=== PATIENT | female | born 1990 | race Caucasian/White ===

== ENCOUNTER 2023-03-03 20:12 | Emergency (ER) | payer OTHER, SELFPAY ==
[2023-03-03 20:19] VITALS: BP 124/69; PULSE 76; RESP 18; TEMP 36.6; O2SAT 99; BMI 20.2
[2023-03-03 20:41] LABS: Basophils # 0.1 10^3/uL (0.0-0.1); Basophils % 0.7 %; Eosinophils # 0.3 10^3/uL (0.0-0.8); Eosinophils % 2.7 %; Hematocrit 39.5 % (36-47); Lymphocytes # 2.6 10^3/uL (0.8-4.8); Lymphocytes % 27.8 %; Mean Corpuscular HGB Conc 31.9 g/dL (30-55); Mean Corpuscular Hemoglobin 29.8 pg (27-33); Mean Corpuscular Volume 93.4 fl (85-98); Mean Platelet Volume 12.8 fL (7.4-10.4); Monocytes # 0.6 10^3/uL (0.2-0.9); Monocytes % 6.8 %; Neutrophils # 5.68 10^3/uL (1.8-7.7); Neutrophils % 61.8 %; Nucleated Red Blood Cells % 0 %; Platelet Count 194 10^3/cmm (157-399); Red Blood Count 4.23 10^6/uL (3.85-5.65); Red Cell Distribution Width 12.8 % (12.1-15.1); White Blood Count 9.18 10^3/uL (3.29-11.43)
--- NOTE | 2023-03-03 20:44 | USR_ITS ---
PROCEDURE INFORMATION: Exam: US Abdomen, Limited; Right Upper Quadrant Exam date and time: 03/03/2023 9:00 PM Age: 33 years old Clinical indication: Abdominal pain; Other: Ruq pain; Patient HX: Diagnosed with gallstone in tx 4 months ago but missed surgical appointment due to a clerical error. Normal tbili = 0.2, normal ast = 14, normal alt = 11, normal alkphos = 70; Normal lipase = 26. TECHNIQUE: Imaging protocol: Real time ultrasound of the abdomen with image documentation. Limited exam focused on the right upper quadrant. COMPARISON: No relevant prior studies available. FINDINGS: Liver: Normal. No masses. Gallbladder: Shadowing stones in the gallbladder. Thickened gallbladder wall measuring 6.7 mm. No pericholecystic fluid. Positive Leong's sign. Biliary ducts: Normal. No stones. No dilation. Pancreas: Visualized pancreas is unremarkable. Right kidney: Normal. No mass. No hydronephrosis. US/US gall bladder [id number] IMPRESSION: 1. Cholelithiasis with gallbladder wall thickening. This is suspicious for acute cholecystitis.
--- NOTE | 2023-03-03 20:55 | ED_ITS ---
HPI - Abdominal Pain General: Chief Complaint: Abdominal Pain Stated Complaint: abdomen pain Time Seen by Provider: 03/03/23 20:17 Source: patient Mode of arrival: ambulatory Limitations: no limitations History of Present Illness: 33-year-old female states she has had right upper quadrant pain for quite some time she states she has had issues with her gallbladder she just moved here from [place] a week ago she states she was supposed to have her gallbladder out there but missed her appointment. She states she is out of her pain meds and would like to follow-up with a surgeon here she is having some right upper quadrant pain she rates a 2 out of 10 denies any fevers or vomiting Associated Symptoms: Denies chills, diarrhea, dysuria, fever(s), nausea and vomi ting Review of Systems Const: Denies: fever(s), chills, body aches or change in appetite ENMT: Denies: throat pain or dental pain Card: Denies: chest pain Resp: Denies: dyspnea GI: Reports: abdominal pain; Denies: nausea, vomiting or diarrhea : Denies: dysuria Musc: Denies: neck pain or back pain Skin/Breast: Denies: rash Neuro: Denies: headache(s) Physical Exam Const: COMMON NORMALS: no acute distress, patient oriented x3 and healthy appearing HENMT: COMMON NORMALS: normocephalic and atraumatic HEAD & SCALP: normocephalic and atraumatic Neck/C-Spine: COMMON NORMALS: full ROM and supple Chest: COMMONS NORMALS: normal inspection of the chest Resp: COMMON NORMALS: normal respiratory effort Cardio: COMMON NORMALS: regular rate, regular rhythm and No murmurs present (Cardio) RATE: regular rate RHYTHM: regular rhythm GI: COMMON NORMALS: Normal to inspection, nondistended, normoactive bowel sounds present, Soft to palpation, non-tender and no masses PALPATION: Yes Soft to palpation Extremity: COMMON NORMALS: normal to inspection and full ROM Neuro: COMMON NORMALS: patient oriented x3, moves all extremities and no focal motor deficits Psych: COMMON NORMALS: mental status grossly normal, Normal thought process present and cooperative THOUGHT PROCESS: Normal thought process present Skin: COMMON NORMALS: no rashes or lesions noted and no wounds GENERAL SKIN EXAM: no rashes or lesions noted Course Vital Signs: Vital signs: Vital Signs Temperature 97.8 F 03/03/23 20:19 Pulse Rate 76 03/03/23 20:19 Respiratory Rate 16 03/03/23 20:56 Blood Pressure 124/69 03/03/23 20:19 Pulse Oximetry 98 03/03/23 20:56 Oxygen Delivery Me thod Room Air 03/03/23 20:56 MDM - Abdominal Pain Medical Decision Making Patient presents with right upper quadrant pain its been going for quite some time ultrasound showed cholecystitis her white count here is normal she is afebrile her pain is controlled here I spoke to surgeon on-call Dr. Camara and do not feel patient needs immediate surgery at this time will start on Augmentin he is to follow-up in the clinic on inform should having fever vomiting worsening pain she is return. Medical Records I reviewed the patient's medical records. Lab Data I reviewed the patient's lab results. 03/03/23 20:35 03/03/23 20:35 Labs/Radiology: Radiology Impressions Gallbladder Ultrasound 03/03/23 20:44 IMPRESSION: 1. Cholelithiasis with gallbladder wall thickening. This is suspicious for acute cholecystitis. Laboratory Results WBC 9.18 10^3/uL (3.29-11.43) 03/03/23 20:35 RBC 4.23 10^6/uL (3.85-5.65) 03/03/23 20:35 Hgb 12.60 g/dL (11.27-16.99) 03/03/23 20:35 Hct 39.5 % (36-47) 03/03/23 20:35 MCV 93.4 fl (85-98) 03/03/23 20:35 MCH 29.8 pg (27-33) 03/03/23 20:35 MCHC 31.9 g/dL (30-55) 03/03/23 20:35 RDW 12.8 % (12.1-15.1) 03/03/23 20:35 Plt Count 194 10^3/cmm (157-399) 03/03/23 20:35 MPV 12.8 fL (7.4-10.4) H 03/03/23 20:35 Neut % (Auto) 61.8 % 03/03/23 20:35 Lymph % (Auto) 27.8 % 03/03/23 20:35 [place] % (Auto) 6.8 % 03/03/23 20:35 Eos % (Auto) 2.7 % 03/03/23 20:35 Baso % (Auto) 0.7 % 03/03/23 20:35 Neut # (Auto) 5.68 10^3/uL (1.8-7.7) 03/03/23 20:35 Lymph # (Auto) 2.6 10^3/uL (0.8-4.8) 03/03/23 20:35 [place] # (Auto) 0.6 10^3/uL (0.2-0.9) 03/03/23 20:35 Eos # (Auto) 0.3 10^3/uL (0.0-0.8) 03/03/23 20:35 Baso # (Auto) 0.1 10^3/uL (0.0-0.1) 03/03/23 20:35 Nucleated RBC % (auto) 0 % 03/03/23 20:35 Nucleated RBCs # 0.0 /100WBC 03/03/23 20:35 Sodium 142 mmol/L (136-145) 03/03/23 20:35 Potassium 3.7 mmol/L (3.5-5.1) 03/03/23 20:35 Chloride 108 mmol/L (98-107) H 03/03/23 20:35 Carbon Dioxide 25 mmol/L (22-29) 03/03/23 20:35 Anion Gap 12.7 (5-19) 03/03/23 20:35 BUN 13 mg/dL (6-20) 03/03/23 20:35 Creatinine 0.8 mg/dL (0.5-0.9) 03/03/23 20:35 GFR Calculation 81.6 mL/min (90-130) L 03/03/23 20:35 Glucose 88 mg/dL (65-115) 03/03/23 20:35 Calculated Osmolality 294 mOsm/kg (285-295) 03/03/23 20:35 Calcium 8.7 mg/dL (8.5-10.5) 03/03/23 20:35 Total Bilirubin 0.2 mg/dL (0.15-1.2) 03/03/23 20:35 AST 14 U/L (0-32) 03/03/23 20:35 ALT 11 U/L (0-33) 03/03/23 20:35 Alkaline Phosphatase 70 U/L (35-105) 03/03/23 20:35 Total Protein 6.8 g/dL (6.6-8.7) 03/03/23 20:35 Albumin 4.2 g/dL (3.5-5.2) 03/03/23 20:35 Globulin 2.6 g/dL (1.3-4.6) 03/03/23 20:35 Lipase 26 U/L (13-60) 03/03/23 20:35 HCG, Qual Negative (Negative) 03/03/23 20:35 Urine Color Yellow (Yellow) 03/03/23 20:52 Urine Appearance Clear (CLEAR) 03/03/23 20:52 Urine pH 6 (5-7) 03/03/23 20:52 Ur Specific [place] 1.020 (1.005-1.030) 03/03/23 20:52 Urine Protein Neg (Negative) 03/03/23 20:52 Urine Glucose (UA) Norm (Normal) 03/03/23 20:52 Urine Ketones 1+ (Negative) H 03/03/23 20:52 Urine Blood 2+ (Negative) H 03/03/23 20:52 Urine Nitrate Negative (Negative) 03/03/23 20:52 Urine Bilirubin Neg (Negative) 03/03/23 20:52 Urine Urobilinogen Norm mg/dL (Negative) 03/03/23 20:52 Ur Leukocyte Esterase Negative (Negative) 03/03/23 20:52 Urine RBC 5-10 /hpf (0-2) H 03/03/23 20:52 Urine WBC None /hpf (0-5) 03/03/23 20:52 Ur Squamous Epith Cells 0-4 /hpf (0-5) H 03/03/23 20:52 Amorphous Sediment Not Reportable 03/03/23 20:52 Urine Bacteria Trace /hpf (NONE) 03/03/23 20:52 Urine Mucus Trace /hpf 03/03/23 20:52 All radiology interpretation(s) finalized by discharge Discharge Plan Discharge Patient Disposition: Home Clinical Impression: Cholecystitis Condition: Stable Prescriptions: New Augmentin 500-125 mg tablet 1 tab PO BID Qty: 14 0RF ketorolac 10 mg tablet 10 mg PO Q8H PRN (Reason: pain) Qty: 20 0RF ondansetron 4 mg tablet,disintegrating 4 mg PO Q6H PRN (Reason: nausea and vomiting) Qty: 14 0RF Discharge Orders: Discharge ED (Routine); Ordered 03/03/23 Ordered By: Gavin Duvall Referrals: Steven Fox MD [Physician] - 1-3 days Discharge Diet: Advance as tolerated Discharge Activity: Resume usual activity Patient Instructions: Cholecystitis (ED) Coding Level of Care Code ED Wrapper Stemmer Hand for Nahid Groves
[2023-03-03 20:56] VITALS: RESP 16; O2SAT 98
[2023-03-03 20:59] LABS: HCG, Serum Qual Negative (Negative)
[2023-03-03 21:08] LABS: Alanine Aminotransferase 11 U/L (0-33); Albumin Level 4.2 g/dL (3.5-5.2); Alkaline Phosphatase 70 U/L (35-105); Anion Gap 12.7 (5-19); Aspartate Amino Transferase 14 U/L (0-32); Blood Urea Nitrogen 13 mg/dL (6-20); Calcium 8.7 mg/dL (8.5-10.5); Carbon Dioxide 25 mmol/L (22-29); Chloride 108 mmol/L (98-107); Globulin 2.6 g/dL (1.3-4.6); Glomerular Filtration Rate 81.6 mL/min (90-130); Glucose 88 mg/dL (65-115); Lipase 26 U/L (13-60); Osmolality Calculated 294 mOsm/kg (285-295); Potassium 3.7 mmol/L (3.5-5.1); Sodium 142 mmol/L (136-145); Total Bilirubin 0.2 mg/dL (0.15-1.2); Total Protein 6.8 g/dL (6.6-8.7)
[2023-03-03 21:16] LABS: Add Urine Microscopic? YES; Bilirubin Urine Neg (Negative); Blood Urine 2+ (Negative); Glucose Urine UA Norm (Normal); Ketones Urine 1+ (Negative); Leukocyte Esterase Urine Negative (Negative); Nitrate Urine Negative (Negative); Protein Urine Neg (Negative); Urine Appearance Clear (CLEAR); Urine Color Yellow (Yellow); Urobilinogen Urine Norm (Negative); pH Urine 6 (5-7)
[2023-03-03 21:18] LABS: Bacteria Urine TRACE /hpf; Mucus Urine TRACE /hpf; Squamous Epithelial Cell Urine 0-4 /hpf (0-5)
[2023-03-03 21:20] LABS: Add Urine Culture? No
[2023-03-03] MEDS: ketorolac 30 mg/mL INJ 15 MG IVP (21:21)
[2023-03-03 22:02] VITALS: BP 117/76; RESP 16; O2SAT 98
--- NOTE | 2023-03-04 10:45 | PC.NURSE ---
spoke with EDDIE Ragsdale, new order for Cipro 500 mg 1 tab po BID x 10 days, Flagyl 500mg 1 tab PO q8h x 10 days, called both meds into [facility]- updated preferred pharmacy and allergies
--- NOTE | 2023-03-04 18:10 | DCPLANNER ---
Sent message to gen surg for follow up on cholelithiasis
== END 2023-03-03 22:03 | disposition home or self-care (01) ==
PROVIDERS: Emergency Provider Emergency Medicine
DX: K81.9 Cholecystitis, unspecified (principal)
CPT/HCPCS: 36415; 76705; 80053; 81001; 83690; 84703; 85025; 96374; 99284; J1885

== ENCOUNTER 2023-03-07 13:35 | Emergency (ER) | payer SELFPAY ==
[2023-03-07 13:40] VITALS: BP 110/71; PULSE 92; RESP 18; TEMP 36.6; O2SAT 100; BMI 20.2
[2023-03-07 14:28] LABS: Basophils % 0.3 %; Eosinophils # 0.1 10^3/uL (0.0-0.8); Eosinophils % 1.2 %; Hematocrit 43.3 % (36-47); Lymphocytes # 0.8 10^3/uL (0.8-4.8); Lymphocytes % 7.3 %; Mean Corpuscular HGB Conc 31.9 g/dL (30-55); Mean Corpuscular Hemoglobin 29.6 pg (27-33); Mean Corpuscular Volume 92.7 fl (85-98); Mean Platelet Volume 12.8 fL (7.4-10.4); Monocytes # 0.3 10^3/uL (0.2-0.9); Monocytes % 2.8 %; Neutrophils # 9.26 10^3/uL (1.8-7.7); Neutrophils % 88.3 %; Nucleated Red Blood Cells % 0 %; Platelet Count 221 10^3/cmm (157-399); Red Blood Count 4.67 10^6/uL (3.85-5.65); Red Cell Distribution Width 12.9 % (12.1-15.1); White Blood Count 10.49 10^3/uL (3.29-11.43)
[2023-03-07] MEDS: ondansetron 2 mg/ML SDV 2 mL 4 MG IVP (14:44)
[2023-03-07] MEDS: sodium chloride 0.9% 1,000 ML 999 ML IV (14:44)
[2023-03-07 14:46] LABS: Alanine Aminotransferase 13 U/L (0-33); Albumin Level 4.3 g/dL (3.5-5.2); Alkaline Phosphatase 74 U/L (35-105); Anion Gap 15.5 (5-19); Aspartate Amino Transferase 20 U/L (0-32); Blood Urea Nitrogen 13 mg/dL (6-20); Calcium 9.1 mg/dL (8.5-10.5); Carbon Dioxide 24 mmol/L (22-29); Chloride 105 mmol/L (98-107); Globulin 2.8 g/dL (1.3-4.6); Glomerular Filtration Rate 81.6 mL/min (90-130); Glucose 98 mg/dL (65-115); Lipase 18 U/L (13-60); Osmolality Calculated 290 mOsm/kg (285-295); Potassium 4.5 mmol/L (3.5-5.1); Sodium 140 mmol/L (136-145); Total Bilirubin 0.6 mg/dL (0.15-1.2); Total Protein 7.1 g/dL (6.6-8.7)
--- NOTE | 2023-03-07 16:38 | ED_ITS ---
HPI - Nausea/Vomiting/Diarrhea General: Chief complaint: Nausea/Vomiting/Diarrhea Stated complaint: fever, N/V Time Seen by Provider: 03/07/23 13:51 History of Present Illness: This patient is a 33-year-old white female who presents to the emergency department with nausea, vomiting and diarrhea. Symptoms started at 3 AM this morning. She has not had a fever. No dysuria. Some mild crampy abdominal pain. Past medical history is significant for cholecystitis. Review of Systems General: Reports: 10 or more systems reviewed and unremarkable except in HPI and below Physical Exam Const: COMMON NORMALS: no acute distress, patient oriented x3 and no limitations GENERAL APPEARANCE: cooperative and comfortable HENMT: COMMON NORMALS: normocephalic, atraumatic, Normal nasal mucous membranes and turbinates present, moist oral mucous membranes and oropharynx normal HEAD & SCALP: normal to inspection, normocephalic and atraumatic FACE & SINUS: normal facial exam NOSE: Normal nasal mucous membranes and turbinates present Eye: COMMON NORMALS: Equal, round and reactive pupils present, EOMs intact bilaterally and conjunctivae normal GENERAL EYE: appearance normal, both eyes and all related structures CONJUNCTIVA: Yes conjunctivae normal PUPIL: Yes Equal, round and reactive pupils present Neck/C-Spine: COMMON NORMALS: supple and no JVD Chest: COMMONS NORMALS: normal inspection of the chest Resp: COMMON NORMALS: normal respiratory effort and clear to auscultation bilaterally AUSCULTATION: clear to auscultation bilaterally Cardio: COMMON NORMALS: no JVD, regular rate, regular rhythm, No gallops present (Cardio), No murmurs present (Cardio) and No rub (Cardio) RATE: regular rate RHYTHM: regular rhythm GI: COMMON NORMALS: Normal to inspection, nondistended, normoactive bowel sounds present, Soft to palpation and non-tender AUSCULTATION: Yes normoactive bowel sounds PALPATION: Yes Soft to palpation : COMMON NORMALS: Yes no CVA tenderness BLADDER/KIDNEY EXAM: Yes no CVA tenderness Back/Pelvis: COMMON NORMALS: no CVA tenderness and thoracic and lumbar spine normal to inspection Extremity: COMMON NORMALS: normal to inspection Neuro: COMMON NORMALS: patient oriented x3 and CN's II-XII intact bilaterally Psych: COMMON NORMALS: mental status grossly normal, Normal thought process present and cooperative THOUGHT PROCESS: Normal thought process present Skin: COMMON NORMALS: no rashes or lesions noted, turgor normal and no jaundice GENERAL SKIN EXAM: no rashes or lesions noted and turgor normal Course Vital Signs: Vital signs: Vital Signs Temperature 98 F 03/07/23 13:40 Pulse Rate 92 03/07/23 13:40 Respiratory Rate 18 03/07/23 13:40 Blood Pressure 110/71 03/07/23 13:40 Pulse Oximetry 100 03/07/23 13:40 Oxygen Delivery Me thod Room Air 03/07/23 13:40 MDM - Nausea/Vomiting/Diarrhea Medical Decision Making CBC, CMP and lipase were normal. Patient was given a 1 L bolus of normal saline and 4 mg of Zofran IV. She is feeling better. She appears to have gastroenteritis. Recommended she push clear liquids only until symptoms subside then advance diet slowly. She states she does have plenty of Zofran at home. Follow-up with primary care physician next week if no improvement. She was discharged in stable condition. Lab Data 03/07/23 14:12 03/07/23 14:12 Laboratory Results WBC 10.49 10^3/uL (3.29-11.43) 03/07/23 14:12 RBC 4.67 10^6/uL (3.85-5.65) 03/07/23 14:12 Hgb 13.80 g/dL (11.27-16.99) 03/07/23 14:12 Hct 43.3 % (36-47) 03/07/23 14:12 MCV 92.7 fl (85-98) 03/07/23 14:12 MCH 29.6 pg (27-33) 03/07/23 14:12 MCHC 31.9 g/dL (30-55) 03/07/23 14:12 RDW 12.9 % (12.1-15.1) 03/07/23 14:12 Plt Count 221 10^3/cmm (157-399) 03/07/23 14:12 MPV 12.8 fL (7.4-10.4) H 03/07/23 14:12 Neut % (Auto) 88.3 % 03/07/23 14:12 Lymph % (Auto) 7.3 % 03/07/23 14:12 [place] % (Auto) 2.8 % 03/07/23 14:12 Eos % (Auto) 1.2 % 03/07/23 14:12 Baso % (Auto) 0.3 % 03/07/23 14:12 Neut # (Auto) 9.26 10^3/uL (1.8-7.7) H 03/07/23 14:12 Lymph # (Auto) 0.8 10^3/uL (0.8-4.8) 03/07/23 14:12 [place] # (Auto) 0.3 10^3/uL (0.2-0.9) 03/07/23 14:12 Eos # (Auto) 0.1 10^3/uL (0.0-0.8) 03/07/23 14:12 Baso # (Auto) 0.0 10^3/uL (0.0-0.1) 03/07/23 14:12 Nucleated RBC % (auto) 0 % 03/07/23 14:12 Nucleated RBCs # 0.0 /100WBC 03/07/23 14:12 Sodium 140 mmol/L (136-145) 03/07/23 14:12 Potassium 4.5 mmol/L (3.5-5.1) 03/07/23 14:12 Chloride 105 mmol/L (98-107) 03/07/23 14:12 Carbon Dioxide 24 mmol/L (22-29) 03/07/23 14:12 Anion Gap 15.5 (5-19) 03/07/23 14:12 BUN 13 mg/dL (6-20) 03/07/23 14:12 Creatinine 0.8 mg/dL (0.5-0.9) 03/07/23 14:12 GFR Calculation 81.6 mL/min (90-130) L 03/07/23 14:12 Glucose 98 mg/dL (65-115) 03/07/23 14:12 Calculated Osmolality 290 mOsm/kg (285-295) 03/07/23 14:12 Calcium 9.1 mg/dL (8.5-10.5) 03/07/23 14:12 Total Bilirubin 0.6 mg/dL (0.15-1.2) 03/07/23 14:12 AST 20 U/L (0-32) 03/07/23 14:12 ALT 13 U/L (0-33) 03/07/23 14:12 Alkaline Phosphatase 74 U/L (35-105) 03/07/23 14:12 Total Protein 7.1 g/dL (6.6-8.7) 03/07/23 14:12 Albumin 4.3 g/dL (3.5-5.2) 03/07/23 14:12 Globulin 2.8 g/dL (1.3-4.6) 03/07/23 14:12 Lipase 18 U/L (13-60) 03/07/23 14:12 No radiology studies performed this visit Discharge Plan Discharge Patient Disposition: Home Clinical Impression: Gastroenteritis Condition: Stable Prescriptions: No Action ketorolac 10 mg tablet 10 mg PO Q8H PRN (Reason: pain) Qty: 20 0RF ondansetron 4 mg tablet,disintegrating 4 mg PO Q6H PRN (Reason: nausea and vomiting) Qty: 14 0RF Flagyl 500 mg Tablet 500 mg PO Q8H Rx Instructions: for 10 days (rx filled 03/04/23) Cipro 500 mg Tablet 500 mg PO BID Rx Instructions: for 10 days (rx filled 03/04/23) Discharge Orders: Discharge ED (Routine); Ordered 03/07/23 Ordered By: Kervin Olivo Patient Instructions: Gastroenteritis (DC) Coding Level of Care Code ED Engineering Specialist Technician for Nahid Groves
== END 2023-03-07 15:29 | disposition home or self-care (01) ==
PROVIDERS: Emergency Provider Emergency Medicine
DX: K52.9 Noninfective gastroenteritis and colitis, unspecified (principal)
CPT/HCPCS: 36415; 80053; 83690; 85025; 96374; 99284; J2405; J7030

== ENCOUNTER 2023-03-20 16:28 | Emergency (ER) | payer OTHER, SELFPAY ==
[2023-03-20 16:31] VITALS: BP 144/82; PULSE 98; RESP 18; TEMP 36.5; O2SAT 100
[2023-03-20 17:24] LABS: Basophils # 0.1 10^3/uL (0.0-0.1); Basophils % 0.5 %; Eosinophils # 0.1 10^3/uL (0.0-0.8); Eosinophils % 0.5 %; Hematocrit 43.9 % (36-47); Lymphocytes # 2.3 10^3/uL (0.8-4.8); Lymphocytes % 17.8 %; Mean Corpuscular HGB Conc 32.1 g/dL (30-55); Mean Corpuscular Hemoglobin 29.4 pg (27-33); Mean Corpuscular Volume 91.5 fl (85-98); Mean Platelet Volume 11.7 fL (7.4-10.4); Monocytes # 0.6 10^3/uL (0.2-0.9); Monocytes % 4.4 %; Neutrophils # 9.83 10^3/uL (1.8-7.7); Neutrophils % 76.5 %; Nucleated Red Blood Cells % 0 %; Platelet Count 355 10^3/cmm (157-399); Red Cell Distribution Width 12.5 % (12.1-15.1); White Blood Count 12.84 10^3/uL (3.29-11.43)
[2023-03-20] MEDS: sodium chloride 0.9% 1,000 ML 999 ML IV (17:28)
[2023-03-20] MEDS: ketorolac 30 mg/mL INJ IVP (17:29)
[2023-03-20] MEDS: ondansetron 2 mg/ML SDV 2 mL 4 MG IVP (17:29)
[2023-03-20 17:40] VITALS: BP 127/88; PULSE 78; RESP 16; O2SAT 93
[2023-03-20 17:42] LABS: Add Urine Microscopic? NO; Charge for UA Resulting for Rev
[2023-03-20 17:51] LABS: Alanine Aminotransferase 14 U/L (0-33); Albumin Level 4.5 g/dL (3.5-5.2); Alkaline Phosphatase 70 U/L (35-105); Anion Gap 16.5 (5-19); Aspartate Amino Transferase 15 U/L (0-32); Blood Urea Nitrogen 9 mg/dL (6-20); Calcium 9.6 mg/dL (8.5-10.5); Carbon Dioxide 22 mmol/L (22-29); Chloride 104 mmol/L (98-107); Globulin 2.9 g/dL (1.3-4.6); Glomerular Filtration Rate 81.6 mL/min (90-130); Glucose 84 mg/dL (65-115); Lipase 17 U/L (13-60); Osmolality Calculated 286 mOsm/kg (285-295); Potassium 3.5 mmol/L (3.5-5.1); Sodium 139 mmol/L (136-145); Total Bilirubin 0.4 mg/dL (0.15-1.2); Total Protein 7.4 g/dL (6.6-8.7)
--- NOTE | 2023-03-20 17:57 | ED_ITS ---
HPI - Abdominal Pain 2 General: Chief Complaint: Abdominal Pain Stated Complaint: abd pain,reports gallbladder attack Time Seen by Provider: 03/20/23 17:12 History of Present Illness: Patient presents to the ER with complaints of having a gallbladder attack. Patient states she drank an energy drink today that she does not normally drink and it triggered her anxiety causing her heart to race and causing her to have a right upper quadrant pain type gallbladder attack. Patient says she calm her anxiety down by breathing in and out a paper bag. Patient does have known gallstones and she is set for surgery by Dr. Blum in April 23, 2023. Patient is not having nausea with vomiting. Patient said she tried to eat a [employer] sandwich today but was unable to due to nausea vomiting. Patient is already feeling better. Review of Systems 2 General: Reports: 10 or more systems reviewed and unremarkable except in HPI and below PFSH ED 2 PFSH: Social History Smoking and tobacco/nicotine status: current some day tobacco/nicotine user cigarettes Physical Exam 2 Const: COMMON NORMALS: no acute distress, average body habitus, patient oriented x3, no limitations, healthy appearing, alert and well nourished Neck/C-Spine: COMMON NORMALS: no JVD Chest: COMMONS NORMALS: normal inspection of the chest and normal palpation of entire chest wall Resp: COMMON NORMALS: normal respiratory effort, No retractions, No use of accessory muscles and clear to auscultation bilaterally AUSCULTATION: clear to auscultation bilaterally Cardio: COMMON NORMALS: no JVD, regular rate, regular rhythm, S1 normal heart sound present, S2 normal heart sound present, No gallops present (Cardio), No clicks present (Cardio), No murmurs present (Cardio) and No rub (Cardio) R ATE: regular rate RHYTHM: regular rhythm HEART SOUNDS: S1 normal heart sound present and S2 normal heart sound present GI: COMMON NORMALS: Normal to inspection, nondistended, normoactive bowel sounds present, Soft to palpation, No hepatosplenomegaly present and no masses; negative for non-tender (Tender to palpate right upper quadrant) PALPATION: Y es Soft to palpation and Yes No hepatosplenomegaly present Neuro: COMMON NORMALS: patient oriented x3 SENSORIUM/ORIENTATION: Yes alert Course 2 Vital Signs: Vital signs: Vital Signs Temperature 97.7 F 03/20/23 16:31 Pulse Rate 78 03/20/23 17:40 Respiratory Rate 16 03/20/23 17:40 Blood Pressure 127/88 03/20/23 17:40 Pulse Oximetry 93 03/20/23 17:40 Oxygen Delivery Me thod Room Air 03/20/23 16:31 MDM - Abdominal Pain Medical Decision Making Presents to the ER with right upper quadrant pain/biliary colic probably secondary to drinking energy drink and having anxiety attack. Lab work was obtained which was essentially benign. Patient was given 1 L sodium chloride bolus, 30 mg of Toradol, Zofran 4 mg, and patient felt much better. Patient be discharged home to keep her appointment with her surgeon as previously planned. Differential Diagnosis Likely abdominal pain; Unlikely acute appendicitis, calculus of kidney, constipation, diverticulitis, endometriosis, gastroenteritis, pancreatitis or small bowel obstruction Medical Records I reviewed the patient's medical records. Lab Data I reviewed the patient's lab results. 03/20/23 17:04 03/20/23 17:04 Labs/Radiology: Laboratory Results WBC 12.84 10^3/uL (3.29-11.43) H 03/20/23 17:04 RBC 4.80 10^6/uL (3.85-5.65) 03/20/23 17:04 Hgb 14.10 g/dL (11.27-16.99) 03/20/23 17:04 Hct 43.9 % (36-47) 03/20/23 17:04 MCV 91.5 fl (85-98) 03/20/23 17:04 MCH 29.4 pg (27-33) 03/20/23 17:04 MCHC 32.1 g/dL (30-55) 03/20/23 17:04 RDW 12.5 % (12.1-15.1) 03/20/23 17:04 Plt Count 355 10^3/cmm (157-399) 03/20/23 17:04 MPV 11.7 fL (7.4-10.4) H 03/20/23 17:04 Neut % (Auto) 76.5 % 03/20/23 17:04 Lymph % (Auto) 17.8 % 03/20/23 17:04 [place] % (Auto) 4.4 % 03/20/23 17:04 Eos % (Auto) 0.5 % 03/20/23 17:04 Baso % (Auto) 0.5 % 03/20/23 17:04 Neut # (Auto) 9.83 10^3/uL (1.8-7.7) H 03/20/23 17:04 Lymph # (Auto) 2.3 10^3/uL (0.8-4.8) 03/20/23 17:04 [place] # (Auto) 0.6 10^3/uL (0.2-0.9) 03/20/23 17:04 Eos # (Auto) 0.1 10^3/uL (0.0-0.8) 03/20/23 17:04 Baso # (Auto) 0.1 10^3/uL (0.0-0.1) 03/20/23 17:04 Nucleated RBC % (auto) 0 % 03/20/23 17:04 Nucleated RBCs # 0.0 /100WBC 03/20/23 17:04 Sodium 139 mmol/L (136-145) 03/20/23 17:04 Potassium 3.5 mmol/L (3.5-5.1) 03/20/23 17:04 Chloride 104 mmol/L (98-107) 03/20/23 17:04 Carbon Dioxide 22 mmol/L (22-29) 03/20/23 17:04 Anion Gap 16.5 (5-19) 03/20/23 17:04 BUN 9 mg/dL (6-20) 03/20/23 17:04 Creatinine 0.8 mg/dL (0.5-0.9) 03/20/23 17:04 GFR Calculation 81.6 mL/min (90-130) L 03/20/23 17:04 Glucose 84 mg/dL (65-115) 03/20/23 17:04 Calculated Osmolality 286 mOsm/kg (285-295) 03/20/23 17:04 Calcium 9.6 mg/dL (8.5-10.5) 03/20/23 17:04 Total Bilirubin 0.4 mg/dL (0.15-1.2) 03/20/23 17:04 AST 15 U/L (0-32) 03/20/23 17:04 ALT 14 U/L (0-33) 03/20/23 17:04 Alkaline Phosphatase 70 U/L (35-105) 03/20/23 17:04 Total Protein 7.4 g/dL (6.6-8.7) 03/20/23 17:04 Albumin 4.5 g/dL (3.5-5.2) 03/20/23 17:04 Globulin 2.9 g/dL (1.3-4.6) 03/20/23 17:04 Lipase 17 U/L (13-60) 03/20/23 17:04 HCG, Qual Negative (Negative) 03/20/23 17:04 Urine Color Light yellow (Yellow) 03/20/23 17:25 Urine Appearance Clear (CLEAR) 03/20/23 17:25 Urine pH 7 (5-7) 03/20/23 17:25 Ur Specific [place] 1.010 (1.005-1.030) 03/20/23 17:25 Urine Protein Neg (Negative) 03/20/23 17:25 Urine Glucose (UA) Norm (Normal) 03/20/23 17:25 Urine Ketones Negative (Negative) 03/20/23 17:25 Urine Blood Neg (Negative) 03/20/23 17:25 Urine Nitrate Negative (Negative) 03/20/23 17:25 Urine Bilirubin Neg (Negative) 03/20/23 17:25 Urine Urobilinogen Norm mg/dL (Negative) 03/20/23 17:25 Ur Leukocyte Esterase Negative (Negative) 03/20/23 17:25 No radiology studies performed this visit Discharge Plan Discharge Patient Disposition: Home Clinical Impression: Biliary colic Condition: Stable Prescriptions: No Action meloxicam 15 mg tablet 15 mg PO DAILY Qty: 15 0RF ketorolac 10 mg tablet 10 mg PO Q8H PRN (Reason: pain) Qty: 20 0RF ondansetron 4 mg tablet,disintegrating 4 mg PO Q6H PRN (Reason: nausea and vomiting) Qty: 14 0RF Flagyl 500 mg Tablet 500 mg PO Q8H Rx Instructions: for 10 days (rx filled 03/04/23) Cipro 500 mg Tablet 500 mg PO BID Rx Instructions: for 10 days (rx filled 03/04/23) Discharge Orders: Discharge ED (Routine); Ordered 03/20/23 Ordered By: Landon Davies Patient Instructions: Biliary Colic (ED) Activity Restrictions/Additional Instructions: Keep your appointment with your surgeon for your Removal of your gallbladder. If your pain comes back or worsens please feel free to return to the ER for further evaluation and treatment. Coding Level of Care Code ED Master Welder for Nahid Groves
[2023-03-20 18:06] LABS: HCG, Serum Qual Negative (Negative)
[2023-03-20 18:30] LABS: Bilirubin Urine Neg (Negative); Blood Urine Neg (Negative); Glucose Urine UA Norm (Normal); Ketones Urine Negative (Negative); Leukocyte Esterase Urine Negative (Negative); Nitrate Urine Negative (Negative); Protein Urine Neg (Negative); Urine Appearance Clear (CLEAR); Urine Color Light yellow (Yellow); Urobilinogen Urine Norm (Negative); pH Urine 7 (5-7)
[2023-03-20 19:28] VITALS: BP 127/88; PULSE 78; RESP 16; TEMP 36.5; O2SAT 93
== END 2023-03-20 19:30 | disposition home or self-care (01) ==
PROVIDERS: Nurse Practitioner Family; Emergency Provider Emergency Medicine
DX: K80.50 Calculus of bile duct without cholangitis or cholecystitis without obstruction (principal); F17.210 Nicotine dependence, cigarettes, uncomplicated
CPT/HCPCS: 36415; 80053; 81003; 83690; 84703; 85025; 96361; 96374; 96375; 99284; J1885; J2405; J7030

== ENCOUNTER 2023-03-23 18:54 | Emergency (ER) | payer OTHER, SELFPAY ==
[2023-03-23 18:58] VITALS: BP 115/79; PULSE 87; RESP 16; TEMP 36.7; O2SAT 99; BMI 17.4
[2023-03-23 20:31] LABS: Basophils # 0.1 10^3/uL (0.0-0.1); Basophils % 0.5 %; Eosinophils # 0.2 10^3/uL (0.0-0.8); Eosinophils % 1.8 %; Hematocrit 42.8 % (36-47); Lymphocytes # 2.8 10^3/uL (0.8-4.8); Lymphocytes % 25.7 %; Mean Corpuscular Hemoglobin 29.1 pg (27-33); Mean Corpuscular Volume 91.1 fl (85-98); Mean Platelet Volume 12.1 fL (7.4-10.4); Monocytes # 0.5 10^3/uL (0.2-0.9); Monocytes % 4.8 %; Neutrophils # 7.32 10^3/uL (1.8-7.7); Neutrophils % 66.9 %; Nucleated Red Blood Cells % 0 %; Platelet Count 296 10^3/cmm (157-399); Red Cell Distribution Width 12.5 % (12.1-15.1); White Blood Count 10.95 10^3/uL (3.29-11.43)
[2023-03-23 20:35] VITALS: BP 99/72; PULSE 78; RESP 15; O2SAT 98
--- NOTE | 2023-03-23 20:46 | W.ED.ABDPA2 ---
HPI - Abdominal Pain General: Chief Complaint: Abdominal Pain Stated Complaint: gallbladder abd pain Time Seen by Provider: 03/23/23 20:14 History of Present Illness: 33-year-old female with a history of biliary colic. She presents with right upper quadrant and right flank abdominal pain today. She has nausea. No vomiting. No diarrhea. No history of belly surgery. No fever. Associated Symptoms: Denies chills, diarrhea, fever(s), hematochezia and vomiting Related Data: Date of Last Menstrual Period: 03/12/23 Review of Systems Const: Denies: fever(s), chills or body aches Eyes: Denies: change in vision Card: Denies: chest pain or palpitations Resp: Denies: dyspnea, productive cough, non-productive cough or wheezing GI: Denies: vomiting, diarrhea or hematochezia : Denies: difficulty voiding Skin/Breast: Denies: rash Neuro: Denies: headache(s), weakness in extremities, dizziness or confusion PFSH ED PFSH: Social History Smoking and tobacco/nicotine status: current some day tobacco/nicotine user cigarettes Female Reproductive History: Date of last menstrual period: 03/12/23 Physical Exam Const: COMMON NORMALS: no acute distress GENERAL APPEARANCE: cooperative; not ill appearing and not frail appearing HENMT: COMMON NORMALS: normocephalic, atraumatic and Normal external nose present HEAD & SCALP: normocephalic and atraumatic FACE & SINUS: normal facial exam and face symmetric NOSE: Normal external nose present Eye: COMMON NORMALS: Equal, round and reactive pupils present and EOMs intact bilaterally PUPIL: Yes Equal, round and reactive pupils present Neck/C-Spine: GENERAL: Yes trachea midline Chest: CHEST: Yes Symmetrical chest wall rise Resp: COMMON NORMALS: normal respiratory effort, No retractions, No use of accessory muscles and clear to auscultation bilaterally AUSCULTATION: clear to auscultation bilaterally Cardio: COMMON NORMALS: regular rate and regular rhythm RATE: regular rate RHYTHM: regular rhythm GI: COMMON NORMALS: Normal to inspection, nondistended, normoactive bowel sounds present PALPATION: Yes Tenderness to palpation present (GI) Details: RUQ Extremity: COMMON NORMALS: no pedal edema Neuro: KAREN COMA SCALE: document GCS findings Karen coma scale eye opening: Spontaneous [place] coma scale verbal response: Orientated Karen coma scale motor response: Obey commands Karen coma scale total score: 15 SENSORY EXAM: Yes extremities (intact) Psych: COMMON NORMALS: speech normal SPEECH: Yes normal speech Skin: COMMON NORMALS: no rashes or lesions noted GENERAL SKIN EXAM: no rashes or lesions noted Course Vital Signs: Vital signs: Vital Signs Temperature 98.0 F 03/23/23 18:58 Pulse Rate 80 03/23/23 21:56 Respiratory Rate 15 03/23/23 20:35 Blood Pressure 125/51 03/23/23 21:56 Pulse Oximetry 98 03/23/23 21:56 Oxygen Delivery Me thod Room Air 03/23/23 18:58 MDM - Abdominal Pain Medical Decision Making 33-year-old female with a history of cholecystitis. She took antibiotics for this, and is scheduled at the beginning of April for cholecystectomy. She presents with right upper quadrant pain. No vomiting no fever. Vitals are stable. CBC is normal. BMP is normal. Liver enzymes are normal. C-reactive protein is 3. Urinalysis showed hematuria, and the patient is not on her period. Because of this, and because of history of gallbladder wall thickening on ultrasound previously, CT was ordered. It shows a nonobstructing kidney stone on the right. Cholelithiasis is present without gallbladder wall thickening. She will be allowed home for biliary colic. Outpatient follow-up. Lab Data 03/23/23 20:23 03/23/23 20:23 Labs/Radiology: Radiology Impressions Abdomen/Pelvis CT 03/23/23 21:43 IMPRESSION: 1. Small left and punctate right nonobstructing renal calculi. No hydroureteronephrosis. 2. Cholelithiasis. Laboratory Results WBC 10.95 10^3/uL (3.29-11.43) 03/23/23 20: RBC 4.70 10^6/uL (3.85-5.65) 03/23/23 20:23 Hgb 13.70 g/dL (11.27-16.99) 03/23/23 20:23 Hct 42.8 % (36-47) 03/23/23 20: MCV 91.1 fl (85-98) 03/23/23 20:23 MCH 29.1 pg (27-33) 03/23/23 20: MCHC 32.0 g/dL (30-55) 03/23/23 20: RDW 12.5 % (12.1-15.1) 03/23/23 20: Plt Count 296 10^3/cmm (157-399) 03/23/23 20: MPV 12.1 fL (7.4-10.4) H 03/23/23 20: Neut % (Auto) 66.9 % 03/23/23 20: Lymph % (Auto) 25.7 % 03/23/23 20: [place] % (Auto) 4.8 % 03/23/23 20: Eos % (Auto) 1.8 % 03/23/23: Baso % (Auto) 0.5 % 03/23/23 20: Neut # (Auto) 7.32 10^3/uL (1.8-7.7) 03/23/23 20: Lymph # (Auto) 2.8 10^3/uL (0.8-4.8) 03/23/23 20: [place] # (Auto) 0.5 10^3/uL (0.2-0.9) 03/23/23 20: Eos # (Auto) 0.2 10^3/uL (0.0-0.8) 03/23/23 20: Baso # (Auto) 0.1 10^3/uL (0.0-0.1) 03/23/23 20: Nucleated RBC % (auto) 0 % 03/23/23: Nucleated RBCs # 0.0 /100WBC 03/23/23 20: Sodium 140 mmol/L (136-145) 03/23/23 20:23 Potassium 4.1 mmol/L (3.5-5.1) 03/23/23 20: Chloride 105 mmol/L (98-107) 03/23/23 20: Carbon Dioxide 23 mmol/L (22-29) 03/23/23 20:23 Anion Gap 16.1 (5-19) 03/23/23 20:23 BUN 12 mg/dL (6-20) 03/23/23 20: Creatinine 0.6 mg/dL (0.5-0.9) 03/23/23 20: GFR Calculation 113.8 mL/min (90-130) 03/23/23 20: Glucose 80 mg/dL (65-115) 03/23/23 20: Calculated Osmolality 289 mOsm/kg (285-295) 03/23/23 20: Calcium 9.4 mg/dL (8.5-10.5) 03/23/23 20: Total Bilirubin 0.2 mg/dL (0.15-1.2) 03/23/23 20: AST 12 U/L (0-32) 03/23/23 20: ALT 10 U/L (0-33) 03/23/23 20: Alkaline Phosphatase 75 U/L (35-105) 03/23/23 20: C-Reactive Protein 3.0 mg/L (0.0-4.9) 03/23/23 20: Total Protein 7.4 g/dL (6.6-8.7) 03/23/23 20: Albumin 4.4 g/dL (3.5-5.2) 03/23/23 20: Globulin 3.0 g/dL (1.3-4.6) 03/23/23 20: Lipase 22 U/L (13-60) 03/23/23 20: HCG, Qual Negative (Negative) 03/23/23 20: Urine Color Yellow (Yellow) 03/23/23 20: Urine Appearance Hazy (CLEAR) A 03/23/23 20: Urine pH 7 (5-7) 03/23/23 20: Ur Specific [place] 1.010 (1.005-1.030) 03/23/23 20: Urine Protein Neg (Negative) 03/23/23 20: Urine Glucose (UA) Norm (Normal) 03/23/23 20: Urine Ketones Negative (Negative) 03/23/23 20: Urine Blood 2+ (Negative) H 03/23/23 20: Urine Nitrate Negative (Negative) 03/23/23 20: Urine Bilirubin Neg (Negative) 03/23/23 20: Urine Urobilinogen 1 mg/dL (Negative) H 03/23/23 20: Ur Leukocyte Esterase Negative (Negative) 12/03/23 20:22 Urine RBC 0-4 /hpf (0-2) H 03/23/23 20:22 Urine WBC None /hpf (0-5) 03/23/23 20:22 Ur Squamous Epith Cells 5-10 /hpf (0-5) H 03/23/23 20:22 Amorphous Sediment Not Reportable 03/23/23 20:22 Urine Bacteria None /hpf (NONE) 03/23/23 20:22 All radiology interpretation(s) finalized by discharge Discharge Plan Discharge Patient Disposition: Home Clinical Impression: Biliary colic Condition: Stable Prescriptions: New tramadol 50 mg tablet 50 mg PO Q6H PRN (Reason: pain) Qty: 14 0RF Continued ketorolac 10 mg tablet 10 mg PO Q8H PRN (Reason: pain) Qty: 20 0RF Discontinued meloxicam 15 mg tablet 15 mg PO DAILY Qty: 15 0RF No Action ondansetron 4 mg tablet,disintegrating 4 mg PO Q6H PRN (Reason: nausea and vomiting) Qty: 14 0RF Flagyl 500 mg Tablet 500 mg PO Q8H Rx Instructions: for 10 days (rx filled 03/04/23) Cipro 500 mg Tablet 500 mg PO BID Rx Instructions: for 10 days (rx filled 03/04/23) Discharge Orders: Discharge ED (Routine); Ordered 03/23/23 Ordered By: Irvin Solis Patient Instructions: Biliary Colic (ED), Abdominal Pain (ED), Opioid Safety, Pain Management Activity Restrictions/Additional Instructions: Return for fever greater than 100, vomiting liquids or medications, worsening pain despite treatment, yellowing of the eyes, other concerning symptoms. See your doctor next week. Coding Level of Care Code ED Apartment Community Assistant Manager for [facility]
[2023-03-23 20:47] LABS: HCG, Serum Qual Negative (Negative)
[2023-03-23 20:52] LABS: Alanine Aminotransferase 10 U/L (0-33); Albumin Level 4.4 g/dL (3.5-5.2); Alkaline Phosphatase 75 U/L (35-105); Anion Gap 16.1 (5-19); Aspartate Amino Transferase 12 U/L (0-32); Blood Urea Nitrogen 12 mg/dL (6-20); Calcium 9.4 mg/dL (8.5-10.5); Carbon Dioxide 23 mmol/L (22-29); Chloride 105 mmol/L (98-107); Glomerular Filtration Rate 113.8 mL/min (90-130); Glucose 80 mg/dL (65-115); Lipase 22 U/L (13-60); Osmolality Calculated 289 mOsm/kg (285-295); Potassium 4.1 mmol/L (3.5-5.1); Sodium 140 mmol/L (136-145); Total Bilirubin 0.2 mg/dL (0.15-1.2); Total Protein 7.4 g/dL (6.6-8.7)
[2023-03-23 21:04] LABS: Add Urine Microscopic? YES; Bilirubin Urine Neg (Negative); Blood Urine 2+ (Negative); Glucose Urine UA Norm (Normal); Ketones Urine Negative (Negative); Leukocyte Esterase Urine Negative (Negative); Nitrate Urine Negative (Negative); Protein Urine Neg (Negative); RBC Urine 0-4 /hpf (0-2); Urine Appearance Hazy (CLEAR); Urine Color Yellow (Yellow); Urobilinogen Urine 1 mg/dL (Negative); pH Urine 7 (5-7)
[2023-03-23 21:05] LABS: Add Urine Culture? No
[2023-03-23] MEDS: ketorolac 30 mg/mL INJ IVP (21:32)
[2023-03-23] MEDS: ondansetron 2 mg/ML SDV 2 mL 4 MG IVP (21:33)
--- NOTE | 2023-03-23 21:43 | CTR_ITS ---
PROCEDURE INFORMATION: Exam: CT Abdomen And Pelvis Without Contrast Exam date and time: 03/23/2023 11:00 PM Age: 33 years old Clinical indication: Abdominal pain; Right; Patient HX: RT flank pain with hematuria; Additional info: R flank pain, hematuria TECHNIQUE: Imaging protocol: Computed tomography of the abdomen and pelvis without contrast. Radiation optimization: All CT scans at this facility use at least one of these dose optimization techniques: automated exposure control; mA and/or kV adjustment per patient size (includes targeted exams where dose is matched to clinical indication); or iterative reconstruction. REPORTING DATA: Count of CT and Cardiac NM exams in prior 12 months: This patient has received 0 known CTs and 0 known cardiac nuclear medicine studies in the 12 months prior to the current study. COMPARISON: US gall bladder [id number] 03/03/2023 9:00 PM RADIATION DOSE METRICS: Total DLP (mGy-cm): 311.5 FINDINGS: Lungs: Clear. Liver: Unremarkable unenhanced appearance. Gallbladder and bile ducts: Cholelithiasis. No pericholecystic fluid. Pancreas: Unremarkable unenhanced appearance. Spleen: Unremarkable. Adrenal glands: Unremarkable. Kidneys and ureters: Small left and punctate right nonobstructing renal calculi. No hydroureteronephrosis. Stomach and bowel: No bowel obstruction. Appendix: No evidence of appendicitis. Intraperitoneal space: No free air. No significant fluid collection. Vasculature: Limited evaluation without IV contrast. No aneurysm. Lymph nodes: No enlarged lymph nodes. Urinary bladder: Unremarkable as visualized. Reproductive: Unremarkable unenhanced appearance as visualized. Bones/joints: No acute fracture. No aggressive osseous lesions. Soft tissues: Unremarkable. CT/CT kidney stone [id number] IMPRESSION: 1. Small left and punctate right nonobstructing renal calculi. No hydroureteronephrosis. 2. Cholelithiasis.
[2023-03-23 21:56] VITALS: BP 125/51; PULSE 80; O2SAT 98
[2023-03-24] MEDS: ketorolac 30 mg/mL INJ IVP (00:13)
== END 2023-03-24 00:30 | disposition home or self-care (01) ==
PROVIDERS: Emergency Provider Emergency Medicine
DX: K80.20 Calculus of gallbladder without cholecystitis without obstruction (principal); N20.0 Calculus of kidney; F17.210 Nicotine dependence, cigarettes, uncomplicated
CPT/HCPCS: 74176; 80053; 81001; 83690; 84703; 85025; 86140; 96374; 96375; 96376; 99285; J1885; J2405

== ENCOUNTER 2023-04-07 18:11 | Emergency (ER) | payer SELFPAY ==
--- NOTE | 2023-04-07 18:12 | USR_ITS ---
PROCEDURE INFORMATION: Exam: US Abdomen, Limited; Right Upper Quadrant Exam date and time: 04/07/2023 6:56 PM Age: 33 years old Clinical indication: Abdominal pain; Acute; ; Patient HX: Patient was seen this er on 03-03-23 with similar diagnosis. ; Additional info: Ruq pain TECHNIQUE: Imaging protocol: Real time ultrasound of the abdomen with image documentation. Limited exam focused on the right upper quadrant. COMPARISON: US gall bladder [id number] 03/03/2023 9:00 PM FINDINGS: Liver: Normal. No masses. 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 Comminution of findings are potentially concerning for acute cholecystitis, a nuclear medicine HIDA scan could further evaluate this as clinically indicated. Biliary ducts: Normal. No stones. No dilation. Pancreas: Visualized pancreas is unremarkable. Right kidney: Normal. No mass. No hydronephrosis. 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 Comminution of findings are potentially concerning for acute cholecystitis, a nuclear medicine HIDA scan could further evaluate this as clinically indicated.
[2023-04-07 18:37] VITALS: BP 106/64; PULSE 79; RESP 14; TEMP 36.6; O2SAT 100; BMI 21.0
--- NOTE | 2023-04-07 18:52 | W.ED.ABDPA2 ---
HPI - Abdominal Pain General: Chief Complaint: Abdominal Pain Stated Complaint: Possible GallBladders Time Seen by Provider: 04/07/23 18:52 PFSH ED PFSH: Social History Smoking and tobacco/nicotine status: current some day tobacco/nicotine user cigarettes Course Vital Signs: Vital signs: Vital Signs Temperature 97.9 F 04/07/23 18:37 Pulse Rate 79 04/07/23 18:37 Respiratory Rate 14 04/07/23 18:37 Blood Pressure 106/64 04/07/23 18:37 Pulse Oximetry 100 04/07/23 18:37 Oxygen Delivery Me thod Room Air 04/07/23 18:37 MDM - Abdominal Pain Lab Data 04/07/23 18:44 04/07/23 18:44 Discharge Plan Discharge Condition: Stable Prescriptions: No Action ondansetron 4 mg tablet,disintegrating 4 mg PO Q6H PRN (Reason: nausea and vomiting) Qty: 14 0RF Flagyl 500 mg Tablet 500 mg PO Q8H Rx Instructions: for 10 days (rx filled 03/04/23) Cipro 500 mg Tablet 500 mg PO BID Rx Instructions: for 10 days (rx filled 03/04/23) tramadol 50 mg tablet 50 mg PO Q6H PRN (Reason: pain) Qty: 14 0RF ketorolac 10 mg tablet 10 mg PO Q8H PRN (Reason: pain) Qty: 20 0RF Coding Level of Care Code ED Chairman And Chief Executive Officer for [facility]
[2023-04-07 18:54] LABS: Basophils # 0.1 10^3/uL (0.0-0.1); Basophils % 0.5 %; Eosinophils # 0.2 10^3/uL (0.0-0.8); Eosinophils % 1.6 %; Hematocrit 41.9 % (36-47); Lymphocytes # 2.9 10^3/uL (0.8-4.8); Mean Corpuscular HGB Conc 31.5 g/dL (30-55); Mean Corpuscular Hemoglobin 29.3 pg (27-33); Mean Corpuscular Volume 92.9 fl (85-98); Mean Platelet Volume 12.6 fL (7.4-10.4); Monocytes # 0.5 10^3/uL (0.2-0.9); Monocytes % 4.5 %; Neutrophils # 7.06 10^3/uL (1.8-7.7); Neutrophils % 66.1 %; Nucleated Red Blood Cells % 0 %; Platelet Count 233 10^3/cmm (157-399); Red Blood Count 4.51 10^6/uL (3.85-5.65); Red Cell Distribution Width 12.9 % (12.1-15.1); White Blood Count 10.67 10^3/uL (3.29-11.43)
[2023-04-07 19:07] LABS: HCG, Serum Qual Positive (Negative)
[2023-04-07 19:13] LABS: Alanine Aminotransferase 11 U/L (0-33); Albumin Level 4.3 g/dL (3.5-5.2); Alkaline Phosphatase 67 U/L (35-105); Anion Gap 14.2 (5-19); Aspartate Amino Transferase 15 U/L (0-32); Blood Urea Nitrogen 13 mg/dL (6-20); Calcium 9.4 mg/dL (8.5-10.5); Carbon Dioxide 24 mmol/L (22-29); Chloride 105 mmol/L (98-107); Glomerular Filtration Rate 95.2 mL/min (90-130); Glucose 85 mg/dL (65-115); Lipase 26 U/L (13-60); Osmolality Calculated 287 mOsm/kg (285-295); Potassium 4.2 mmol/L (3.5-5.1); Sodium 139 mmol/L (136-145); Total Bilirubin 0.2 mg/dL (0.15-1.2); Total Protein 7.3 g/dL (6.6-8.7)
[2023-04-07] MEDS: ondansetron 2 mg/ML SDV 2 mL 4 MG IVP (19:58)
[2023-04-07] MEDS: sodium chloride 0.9% 1,000 ML 999 ML IV (19:59)
[2023-04-07] MEDS: ketorolac 30 mg/mL INJ 15 MG IVP (20:02)
--- NOTE | 2023-04-07 20:03 | ED_ITS ---
HPI - Abdominal Pain 2 General: Chief Complaint: Abdominal Pain Stated Complaint: Possible GallBladders Time Seen by Provider: 04/07/23 18:52 Source: patient Mode of arrival: ambulatory Limitations: no limitations History of Present Illness: 33-year-old female who has had known gal lbladder disease she is actually set up for cholecystectomy April 23 here. States she just ran out of her pain nausea medicine was having right upper quadrant pain earlier today with vomiting. States pain is improved she is resting comfortably denies any worsening improving factors. Associated Symptoms: Reports nausea and vomiting; Denies chills, diarrhea, dysuria and fever(s) Review of Systems 2 Const: Denies: fever(s) or chills ENMT: Denies: throat pain or dental pain Card: Denies: chest pain Resp: Denies: dyspnea GI: Reports: abdominal pain, nausea and vomiting; Denies: diarrhea : Denies: dysuria Musc: Denies: neck pain or back pain Skin/Breast: Denies: rash Neuro: Denies: headache(s) PFSH ED 2 PFSH: Social History Smoking and tobacco/nicotine status: current some day tobacco/nicotine user cigarettes Physical Exam 2 Const: COMMON NORMALS: no acute distress, patient oriented x3 and healthy appearing HENMT: COMMON NORMALS: normocephalic and atraumatic HEAD & SCALP: n ormocephalic and atraumatic Eye: COMMON NORMALS: Equal, round and reactive pupils present and EOMs intact bilaterally PUPIL: Yes Equal, round and reactive pupils present Neck/C-Spine: COMMON NORMALS: full ROM and supple Chest: COMMONS NORMALS: normal inspection of the chest and normal palpation of entire chest wall Resp: COMMON NORMALS: normal respiratory effort, No retractions, No use of accessory muscles and clear to auscultation bilaterally AUSCULTATION: clear to auscultation bilaterally Cardio: COMMON NORMALS: regular rate, regular rhythm and No murmurs present (Cardio) RATE: regular rate RHYTHM: regular rhythm GI: COMMON NORMALS: Normal to inspection, nondistended, normoactive bowel sounds present, Soft to palpation, non-tender and no masses PALPATION: Yes Soft to palpation Extremity: COMMON NORMALS: normal to inspection and full ROM Neuro: COMMON NORMALS: patient oriented x3, moves all extremities and no focal motor deficits Psych: COMMON NORMALS: mental status grossly normal, Normal thought process present and cooperative THOUGHT PROCESS: Normal thought process present Skin: COMMON NORMALS: no rashes or lesions noted and no wounds GENERAL SKIN EXAM: no rashes or lesions noted Course 2 Vital Signs: Vital signs: Vital Signs Temperature 97.9 F 04/07/23 18:37 Pulse Rate 79 04/07/23 18:37 Respiratory Rate 14 04/07/23 18:37 Blood Pressure 106/64 04/07/23 18:37 Pulse Oximetry 100 04/07/23 18:37 Oxygen Delivery Me thod Room Air 04/07/23 18:37 MDM - Abdominal Pain Medical Decision Making Patient presents here with abdominal pain likely biliary colic pain. Patient's pain is much improved here I did inform her her test is positive she is likely very early she has no her lower abdominal complaints or bleeding she is to follow-up with her surgeon now that she is to make sure he is still comfortable taking her to the OR she is return if worsening. Medical Records I reviewed the patient's medical records. Lab Data I reviewed the patient's lab results. 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 Comminution of findings are potentially concerning for acute cholecystitis, a nuclear medicine HIDA scan could further evaluate this as clinically indicated. Laboratory Results WBC 10.67 10^3/uL (3.29-11.43) 04/07/23 18:44 RBC 4.51 10^6/uL (3.85-5.65) 04/07/23 18:44 Hgb 13.20 g/dL (11.27-16.99) 04/07/23 18:44 Hct 41.9 % (36-47) 04/07/23 18:44 MCV 92.9 fl (85-98) 04/07/23 18:44 MCH 29.3 pg (27-33) 04/07/23 18:44 MCHC 31.5 g/dL (30-55) 04/07/23 18:44 RDW 12.9 % (12.1-15.1) 04/07/23 18:44 Plt Count 233 10^3/cmm (157-399) 04/07/23 18:44 MPV 12.6 fL (7.4-10.4) H 04/07/23 18:44 Neut % (Auto) 66.1 % 04/07/23 18:44 Lymph % (Auto) 27.0 % 04/07/23 18:44 [place] % (Auto) 4.5 % 04/07/23 18:44 Eos % (Auto) 1.6 % 04/07/23 18:44 Baso % (Auto) 0.5 % 04/07/23 18:44 Neut # (Auto) 7.06 10^3/uL (1.8-7.7) 04/07/23 18:44 Lymph # (Auto) 2.9 10^3/uL (0.8-4.8) 04/07/23 18:44 [place] # (Auto) 0.5 10^3/uL (0.2-0.9) 04/07/23 18:44 Eos # (Auto) 0.2 10^3/uL (0.0-0.8) 04/07/23 18:44 Baso # (Auto) 0.1 10^3/uL (0.0-0.1) 04/07/23 18:44 Nucleated RBC % (auto) 0 % 04/07/23 18:44 Nucleated RBCs # 0.0 /100WBC 04/07/23 18:44 Sodium 139 mmol/L (136-145) 04/07/23 18:44 Potassium 4.2 mmol/L (3.5-5.1) 04/07/23 18:44 Chloride 105 mmol/L (98-107) 04/07/23 18:44 Carbon Dioxide 24 mmol/L (22-29) 04/07/23 18:44 Anion Gap 14.2 (5-19) 04/07/23 18:44 BUN 13 mg/dL (6-20) 04/07/23 18:44 Creatinine 0.7 mg/dL (0.5-0.9) 04/07/23 18:44 GFR Calculation 95.2 mL/min (90-130) 04/07/23 18:44 Glucose 85 mg/dL (65-115) 04/07/23 18:44 Calculated Osmolality 287 mOsm/kg (285-295) 04/07/23 18:44 Calcium 9.4 mg/dL (8.5-10.5) 04/07/23 18:44 Total Bilirubin 0.2 mg/dL (0.15-1.2) 04/07/23 18:44 AST 15 U/L (0-32) 04/07/23 18:44 ALT 11 U/L (0-33) 04/07/23 18:44 Alkaline Phosphatase 67 U/L (35-105) 04/07/23 18:44 Total Protein 7.3 g/dL (6.6-8.7) 04/07/23 18:44 Albumin 4.3 g/dL (3.5-5.2) 04/07/23 18:44 Globulin 3.0 g/dL (1.3-4.6) 04/07/23 18:44 Lipase 26 U/L (13-60) 04/07/23 18:44 HCG, Qual Positive (Negative) H 04/07/23 18:44 Ser , Semi-Qnt 220.10 mIU/mL 04/07/23 18:44 Urine Color Yellow (Yellow) 04/07/23 19:47 Urine Appearance Hazy (CLEAR) A 04/07/23 19:47 Urine pH 5 (5-7) 04/07/23 19:47 Ur Specific [place] 1.015 (1.005-1.030) 04/07/23 19:47 Urine Protein Neg (Negative) 04/07/23 19:47 Urine Glucose (UA) Norm (Normal) 04/07/23 19:47 Urine Ketones Negative (Negative) 04/07/23 19:47 Urine Blood 2+ (Negative) H 04/07/23 19:47 Urine Nitrate Negative (Negative) 04/07/23 19:47 Urine Bilirubin Neg (Negative) 04/07/23 19:47 Urine Urobilinogen Neg mg/dL (Negative) 04/07/23 19:47 Ur Leukocyte Esterase Trace (Negative) H 04/07/23 19:47 Urine RBC 5-10 /hpf (0-2) H 12/18/23 19:47 Urine WBC 0-4 /hpf (0-5) H 04/07/23 19:47 Ur Squamous Epith Cells 15-25 /hpf (0-5) H 04/07/23 19:47 Amorphous Sediment Not Reportable 04/07/23 19:47 Urine Bacteria 2+ /hpf (NONE) H 04/07/23 19:47 All radiology interpretation(s) finalized by discharge Discharge Plan Discharge Patient Disposition: Home Clinical Impression: Abdominal pain Qualifiers: Abdominal location: right upper quadrant Qualified Code(s): R10.11 - Right upper quadrant pain Condition: Stable Prescriptions: New ondansetron 4 mg tablet,disintegrating 4 mg PO Q6H PRN (Reason: nausea and vomiting) Qty: 14 0RF No Action ondansetron 4 mg tablet,disintegrating 4 mg PO Q6H PRN (Reason: nausea and vomiting) Qty: 14 0RF Flagyl 500 mg Tablet 500 mg PO Q8H Rx Instructions: for 10 days (rx filled 03/04/23) Cipro 500 mg Tablet 500 mg PO BID Rx Instructions: for 10 days (rx filled 03/04/23) tramadol 50 mg tablet 50 mg PO Q6H PRN (Reason: pain) Qty: 14 0RF ketorolac 10 mg tablet 10 mg PO Q8H PRN (Reason: pain) Qty: 20 0RF Discharge Orders: Discharge ED (Routine); Ordered 04/07/23 Ordered By: Gavin Duvall Referrals: Steven Fox MD [Physician] - 4-7 days Discharge Diet: Advance as tolerated Discharge Activity: Resume usual activity Patient Instructions: Abdominal Pain (ED) Coding Level of Care Code ED Cleaner Wall for [facility]
[2023-04-07 20:30] LABS: Add Urine Microscopic? YES; Bilirubin Urine Neg (Negative); Blood Urine 2+ (Negative); Glucose Urine UA Norm (Normal); Ketones Urine Negative (Negative); Leukocyte Esterase Urine Trace (Negative); Nitrate Urine Negative (Negative); Protein Urine Neg (Negative); Specific Gravity, Urine 1.015 (1.005-1.030); Urine Appearance Hazy (CLEAR); Urine Color Yellow (Yellow); Urobilinogen Urine Neg (Negative); pH Urine 5 (5-7)
[2023-04-07 20:31] LABS: Add Urine Culture? No; Bacteria Urine 2+ /hpf; Squamous Epithelial Cell Urine 15-25 /hpf (0-5); WBC Urine 0-4 /hpf (0-5)
== END 2023-04-07 21:19 | disposition home or self-care (01) ==
PROVIDERS: Emergency Provider Emergency Medicine
DX: O26.891 Other specified pregnancy related conditions, first trimester (principal); R10.11 Right upper quadrant pain; O99.331 Smoking (tobacco) complicating pregnancy, first trimester; F17.210 Nicotine dependence, cigarettes, uncomplicated; Z3A.00 Weeks of gestation of pregnancy not specified
CPT/HCPCS: 36415; 76705; 80053; 81001; 83690; 84702; 84703; 85025; 96374; 96375; 99284; J1885; J2405; J7030

== ENCOUNTER → 2023-04-09 08:56 | Outpatient (BNVA) | payer OTHER, SELFPAY | PROVIDERS: Visit Provider Nurse Practitioner Women's Health | DX: Z32.00 Encounter for pregnancy test, result unknown (principal); Z34.90 Encounter for supervision of normal pregnancy, unspecified, unspecified trimester | CPT/HCPCS: 81025; 84702 ==

== ENCOUNTER 2023-04-11 16:32 | Emergency (ER) | payer OTHER, SELFPAY ==
[2023-04-11 16:43] VITALS: BP 91/61; PULSE 80; RESP 15; TEMP 36.8; O2SAT 100; BMI 20.3
[2023-04-11 18:29] LABS: Basophils # 0.1 10^3/uL (0.0-0.1); Basophils % 0.5 %; Eosinophils # 0.2 10^3/uL (0.0-0.8); Eosinophils % 1.4 %; Hematocrit 41.6 % (36-47); Lymphocytes # 2.6 10^3/uL (0.8-4.8); Lymphocytes % 25.2 %; Mean Corpuscular HGB Conc 32.7 g/dL (30-55); Mean Corpuscular Volume 91.6 fl (85-98); Mean Platelet Volume 12.3 fL (7.4-10.4); Monocytes # 0.5 10^3/uL (0.2-0.9); Monocytes % 4.3 %; Neutrophils # 7.16 10^3/uL (1.8-7.7); Neutrophils % 68.3 %; Nucleated Red Blood Cells % 0 %; Platelet Count 226 10^3/cmm (157-399); Red Blood Count 4.54 10^6/uL (3.85-5.65); Red Cell Distribution Width 12.9 % (12.1-15.1); White Blood Count 10.48 10^3/uL (3.29-11.43)
[2023-04-11 18:45] LABS: Alanine Aminotransferase 14 U/L (0-33); Albumin Level 4.3 g/dL (3.5-5.2); Alkaline Phosphatase 72 U/L (35-105); Anion Gap 12.1 (5-19); Aspartate Amino Transferase 14 U/L (0-32); Blood Urea Nitrogen 10 mg/dL (6-20); Calcium 9.5 mg/dL (8.5-10.5); Carbon Dioxide 23 mmol/L (22-29); Chloride 105 mmol/L (98-107); Globulin 2.9 g/dL (1.3-4.6); Glomerular Filtration Rate 95.2 mL/min (90-130); Glucose 81 mg/dL (65-115); Lipase 25 U/L (13-60); Osmolality Calculated 280 mOsm/kg (285-295); Potassium 4.1 mmol/L (3.5-5.1); Sodium 136 mmol/L (136-145); Total Bilirubin 0.2 mg/dL (0.15-1.2); Total Protein 7.2 g/dL (6.6-8.7)
== END 2023-04-11 20:19 | disposition left against medical advice (07) ==
PROVIDERS: Physician Assistant; Emergency Provider Family Medicine
DX: Z53.21 Procedure and treatment not carried out due to patient leaving prior to being seen by health care provider (principal)
CPT/HCPCS: 36415; 80053; 83690; 84702; 85025

== ENCOUNTER → 2023-04-15 12:00 | Outpatient (BNVA) | payer OTHER, SELFPAY | PROVIDERS: Visit Provider Nurse Practitioner Women's Health | DX: Z34.91 Encounter for supervision of normal pregnancy, unspecified, first trimester (principal) | CPT/HCPCS: 76817; 84702 ==

== ENCOUNTER 2023-04-17 17:24 | Emergency (ER) | payer OTHER, SELFPAY ==
[2023-04-17 17:29] VITALS: BP 112/77; PULSE 92; TEMP 36.3; O2SAT 100; BMI 20.2
[2023-04-17 18:47] LABS: Basophils % 0.4 %; Eosinophils # 0.1 10^3/uL (0.0-0.8); Eosinophils % 1.3 %; Hematocrit 40.5 % (36-47); Lymphocytes # 2.6 10^3/uL (0.8-4.8); Lymphocytes % 24.5 %; Mean Corpuscular HGB Conc 32.1 g/dL (30-55); Mean Corpuscular Hemoglobin 29.3 pg (27-33); Mean Corpuscular Volume 91.2 fl (85-98); Mean Platelet Volume 12.4 fL (7.4-10.4); Monocytes # 0.5 10^3/uL (0.2-0.9); Monocytes % 4.2 %; Neutrophils # 7.36 10^3/uL (1.8-7.7); Neutrophils % 69.3 %; Nucleated Red Blood Cells % 0 %; Platelet Count 263 10^3/cmm (157-399); Red Blood Count 4.44 10^6/uL (3.85-5.65); Red Cell Distribution Width 13.1 % (12.1-15.1); White Blood Count 10.62 10^3/uL (3.29-11.43)
[2023-04-17 19:16] LABS: Alanine Aminotransferase 11 U/L (0-33); Albumin Level 4.1 g/dL (3.5-5.2); Alkaline Phosphatase 68 U/L (35-105); Anion Gap 16.1 (5-19); Aspartate Amino Transferase 14 U/L (0-32); Blood Urea Nitrogen 11 mg/dL (6-20); Calcium 9.3 mg/dL (8.5-10.5); Carbon Dioxide 23 mmol/L (22-29); Chloride 105 mmol/L (98-107); Globulin 2.7 g/dL (1.3-4.6); Glomerular Filtration Rate 81.6 mL/min (90-130); Glucose 79 mg/dL (65-115); Lipase 32 U/L (13-60); Osmolality Calculated 288 mOsm/kg (285-295); Potassium 4.1 mmol/L (3.5-5.1); Sodium 140 mmol/L (136-145); Total Bilirubin 0.2 mg/dL (0.15-1.2); Total Protein 6.8 g/dL (6.6-8.7)
[2023-04-17 19:43] VITALS: BP 145/91; PULSE 88; RESP 16; O2SAT 100
[2023-04-17] MEDS: ondansetron 2 mg/ML SDV 2 mL 4 MG IVP (19:57)
--- NOTE | 2023-04-17 20:10 | ED_ITS ---
HPI - Abdominal Pain 2 General: Chief Complaint: Abdominal Pain Stated Complaint: Chest pains, high rate, low o2 Time Seen by Provider: 04/17/23 19:37 History of Present Illness: 33-year-old female with curren t intrauterine at 5 weeks and history of pericolic presents emergency room with acute exacerbation of her pain within the past few hours. Patient further reveals that she started having pain about 8 months ago while she was in [place] and recently relocated to [facility]. Patient with multiple ER visits due to this complaint. Patient was seen and evaluated about a week ago for similar complaint and had extensive workup including ultrasound done. Recently did show gallbladder disease and patient is scheduled to see general surgery on the fourth for possible surgery. Patient reveals increased pain today and described pain as sharp sensation with severity of 8 out of 10 mostly right upper quadrant radiating to her back. Patient with some nausea but no vomiting no diarrhea no vaginal bleeding or vaginal discharge. No fever or chills. Patient is currently taking Cipro Associated Symptoms: Denies bloating, change in bowel habits, chills, coffee ground emesis, constipation, GI cramping, diarrhea, excessive flatus, fever(s), heartburn, hematemesis, fecal incontinence, syncope and vomiting Review of Systems 2 General: Reports: 10 or more systems reviewed and unremarkable except in HPI and below Const: Denies: fever(s), chills, body aches, change in appetite, change in weight, fatigue or malaise Card: Reports: palpitations; Denies: irregular heart rhythm, swelling of feet/ankles, lightheadedness, syncope, pre-syncope, dyspnea on exertion or orthopnea Resp: Denies: dyspnea, productive cough or non-productive cough GI: Reports: abdominal pain; Denies: vomiting, hematemesis, coffee ground emesis, dysphagia, heartburn, early satiety, diarrhea, constipation, bloating, GI cramping, excessive flatus, fecal incontinence or change in bowel habits Musc: Denies: neck pain, back pain, extremity pain or extremity swelling Neuro: Denies: headache(s), numbness in extremities or weakness in extremities PFSH ED 2 PFSH: Family History Denies family history of Colon cancer Ovarian cancer Diabetes Heart disease Breast cancer Hypertension Uterine cancer Thyroid disease Stroke Social History Smoking and tobacco/nicotine status: current some day tobacco/nicotine user cigarettes Physical Exam 2 Const: COMMON NORMALS: no acute distress, average body habitus, patient oriented x3, no limitations, healthy appearing, alert and well nourished Chest: COMMONS NORMALS: normal inspection of the chest, normal palpation of entire chest wall, normal inspection of the breasts and normal palpation of the breasts Breast/axilla inspection: Yes normal inspection of the breasts B REAST/AXILLA PALPATION: Yes normal palpation of the breasts Resp: COMMON NORMALS: normal respiratory effort, No retractions, No use of accessory muscles, clear to auscultation bilaterally and percussion normal A USCULTATION: clear to auscultation bilaterally PERCUSSION: percussion normal GI: COMMON NORMALS: Soft to palpation and No hepatosplenomegaly present I NSPECTION: Yes normal to inspection, No abdominal wall ecchymosis, No Abdominal wall edema, No Anasarca and No abdominal distension AUSCULTATION: Yes normoactive bowel sounds PALPATION: Yes Soft to palpation, Yes Tenderness to palpation present (GI) Details: RUQ and Yes No hepatosplenomegaly present P ERCUSSION: normal to percussion : COMMON NORMALS: Yes no CVA tenderness BLADDER/KIDNEY EXAM: Yes no CVA tenderness Back/Pelvis: COMMON NORMALS: no CVA tenderness, thoracic and lumbar spine normal to inspection, no thoracic nor lumbar tenderness, thoraco-lumbar ROM normal and straight leg raise negative bilaterally Extremity: COMMON NORMALS: normal to inspection, full ROM, capillary refill normal, no joint enlargement, no clubbing, cyanosis or edema, no calf tenderness and no pedal edema Neuro: COMMON NORMALS: patient oriented x3 SENSORIUM/ORIENTATION: Yes alert Psych: COMMON NORMALS: mental status grossly normal, Normal thought process present, cooperative, normal affect, speech normal, activity/motor behavior normal, denies hallucinations, denies homicidal ideation and denies suicidal ideation SPEECH: Yes normal speech THOUGHT PROCESS: Normal thought process present Course 2 ED course: Patient's care was complicated by multiple factors including 5 patient allergic to amoxicillin. Patient is currently at 5 weeks. Patient declined narcotic due to severe hallucination. Patient requesting for Toradol but unable to give this medication due to the fact that she is about 5 weeks . Reevaluation(s): Reevaluation #1: I discussed patient with general surgery Vital Signs: Vital signs: Vital Signs Temperature 97.4 F L 04/17/23 17:29 Pulse Rate 87 04/17/23 20:32 Respiratory Rate 16 04/17/23 20:32 Blood Pressure 122/78 04/17/23 20:32 Pulse Oximetry 100 04/17/23 20:32 Oxygen Delivery Me thod Room Air 04/17/23 17:29 MDM - Abdominal Pain Medical Decision Making Patient was made comfortable emergency room had extensive workup with a CBC, CMP and lipase. I was able to review past medical records including the recent ultrasound that showed changes consistent with acute cholecystitis. I spoke with general surgery . He is very familiar with patient's case and recommended admission to the hospital for IV fluid and IV antibiotics and pain medication. I discussed this plan with the patient but patient declined admission at this time. She will go home and follow-up with her doctor as an outpatient. Differential Diagnosis Likely abdominal pain, acute appendicitis, calculus of kidney, constipation, diverticulitis, endometriosis, gastroenteritis, pancreatitis and small bowel obstruction Lab Data 04/17/23 18:28 04/17/23 18:28 Labs/Radiology: Laboratory Results WBC 10.62 10^3/uL (3.29-11.43) 04/17/23 18: RBC 4.44 10^6/uL (3.85-5.65) 04/17/23 18: Hgb 13.00 g/dL (11.27-16.99) 04/17/23 18: Hct 40.5 % (36-47) 04/17/23 18: MCV 91.2 fl (85-98) 04/17/23 18: MCH 29.3 pg (27-33) 04/17/23 18: MCHC 32.1 g/dL (30-55) 04/17/23 18: RDW 13.1 % (12.1-15.1) 04/17/23 18: Plt Count 263 10^3/cmm (157-399) 04/17/23 18: MPV 12.4 fL (7.4-10.4) H 04/17/23 18: Neut % (Auto) 69.3 % 04/17/23 18: Lymph % (Auto) 24.5 % 04/17/23 18: Pondera % (Auto) 4.2 % 04/17/23 18: Eos % (Auto) 1.3 % 04/17/23 18: Baso % (Auto) 0.4 % 04/17/23 18: Neut # (Auto) 7.36 10^3/uL (1.8-7.7) 04/17/23 18: Lymph # (Auto) 2.6 10^3/uL (0.8-4.8) 04/17/23 18: Pondera # (Auto) 0.5 10^3/uL (0.2-0.9) 04/17/23 18: Eos # (Auto) 0.1 10^3/uL (0.0-0.8) 04/17/23 18: Baso # (Auto) 0.0 10^3/uL (0.0-0.1) 04/17/23 18: Nucleated RBC % (auto) 0 % 04/17/23 18: Nucleated RBCs # 0.0 /100WBC 04/17/23 18: Sodium 140 mmol/L (136-145) 04/17/23 18: Potassium 4.1 mmol/L (3.5-5.1) 04/17/23 18: Chloride 105 mmol/L (98-107) 04/17/23 18: Carbon Dioxide 23 mmol/L (22-29) 04/17/23 18: Anion Gap 16.1 (5-19) 04/17/23 18: BUN 11 mg/dL (6-20) 04/17/23 18: Creatinine 0.8 mg/dL (0.5-0.9) 04/17/23 18: GFR Calculation 81.6 mL/min (90-130) L 04/17/23 18: Glucose 79 mg/dL (65-115) 04/17/23 18: Calculated Osmolality 288 mOsm/kg (285-295) 04/17/23 18: Calcium 9.3 mg/dL (8.5-10.5) 04/17/23 18:28 Total Bilirubin 0.2 mg/dL (0.15-1.2) 04/17/23 18:28 AST 14 U/L (0-32) 04/17/23 18:28 ALT 11 U/L (0-33) 04/17/23 18:28 Alkaline Phosphatase 68 U/L (35-105) 04/17/23 18:28 Total Protein 6.8 g/dL (6.6-8.7) 04/17/23 18:28 Albumin 4.1 g/dL (3.5-5.2) 04/17/23 18:28 Globulin 2.7 g/dL (1.3-4.6) 04/17/23 18:28 Lipase 32 U/L (13-60) 04/17/23 18:28 No radiology studies performed this visit Discharge Plan Discharge Patient Disposition: Home Clinical Impression: Colic, biliary Abdominal pain Qualifiers: Abdominal location: right upper quadrant Qualified Code(s): R10.11 - Right upper quadrant pain Condition: Stable Prescriptions: No Action tramadol 50 mg tablet 50 mg PO Q8H PRN (Reason: pain) Qty: 30 0RF [id number] [Fioricet] 50-300-40 mg capsule 1 cap PO TID PRN (Reason: pain) Qty: 30 0RF Cipro 500 mg Tablet 500 mg PO BID Rx Instructions: for 10 days (rx filled 03/04/23) Discharge Orders: Discharge ED (Routine); Ordered 04/17/23 Ordered By: Jacques Corrales Discharge Diet: Low Fat Discharge Activity: Resume usual activity Patient Instructions: Abdominal Pain (ED), Opioid Safety, Pain Management Coding Level of Care Code ED Repair Miller for Nahid Groves
[2023-04-17 20:32] VITALS: BP 122/78; PULSE 87; RESP 16; O2SAT 100
== END 2023-04-17 20:32 | disposition home or self-care (01) ==
PROVIDERS: Emergency Medicine; Emergency Provider Family Medicine
DX: K80.50 Calculus of bile duct without cholangitis or cholecystitis without obstruction (principal); F17.210 Nicotine dependence, cigarettes, uncomplicated
CPT/HCPCS: 36415; 80053; 83690; 85025; 96374; 99284; J2405

== ENCOUNTER 2023-04-23 05:48 | Day surgery (SDC) | payer OTHER, SELFPAY ==
[2023-04-23] VITALS (10 sets, daily range): BP systolic 98–118; BP diastolic 56–76; PULSE 68–101; RESP 16–18; TEMP 36.2–36.8; O2SAT 99–100; BMI 20.2
[2023-04-23] MEDS: sodium chloride 0.9% 1,000 ML 30 ML IV (06:24)
--- NOTE | 2023-04-23 06:29 | P.HP_ITS ---
Same Day Surgery H&P Indication for Procedure/HPI DATE OF PROCEDURE: April 23, 2023 CHIEF COMPLAINT/INDICATIONFOR SURGICAL PROCEDURE: Chronic cholecystitis PREOP DIAGNOSIS: Chronic cholecystitis PLANNED PROCEDURE: Operation Date: 04/23/23 07:00 [place] Procedures p [address]270 lap jaymie K82.9(Not Applicable) - Steven Fox MD Medications/Allergies* Home Medications Medication Instructions Recorded Confirmed Type No Known Home Medications 04/22/23 04/22/23 History Allergies/Adverse Reactions Allergy/AdvReac Type Severity Reaction Status Date / Time acetaminophen [From Tylenol] Allergy Unknown Verified 04/22/23 12:18 amoxicillin [From Amoxil] Allergy ALGY-Anaphy Verified 04/22/23 12:18 laxis latex Allergy ALGY-Rash Verified 04/22/23 12:18 Sulfa (Sulfonamide Allergy ALGY-Anaphy Verified 04/22/23 12:18 Antibiotics) laxis Current Medications: Generic Name Dose Route Start Last Admin Trade Name Freq PRN Reason Stop Dose Admin Sodium Chloride 1,000 mls @ 30 mls/hr 04/23/23 06:00 04/23/23 06:24 Sodium Chloride 0.9% IV 04/24/23 05:59 30 mls/hr .Q24H TEDDY Administration Pertinent History/Comorbid Conditions* Family History (Updated 04/09/23 @ 08:10 by Rola Nuñez [facility]) Denies family history of Colon cancer Ovarian cancer Diabetes Heart disease Breast cancer Hypertension Uterine cancer Thyroid disease Stroke Social History Smoking and tobacco/nicotine status: current some day tobacco/nicotine user cigarettes Pertinent Exam Findings alert, oriented x 3, clear to auscultation bilaterally and regular rate & rhythm Recommendations Surgery/Procedure today Other Plans: Will proceed with possible lap jaymie today, patient has been informed that this is a high risk procedure due to current inflamation and several episodes of acute cholecystitis in the las year. in addition patient is and has been informed of risk of miscarriage or development anomalies. pateint shows understanding and wishes to proceed. Coding Level of Care Code Acute Code for Chg Fwd
[2023-04-23] MEDS: vancomycin 1,000 MG in sodium chloride 0.9% 250 ML 250 MG IV (07:04)
--- NOTE | 2023-04-23 07:19 | ANES.PREANE2 ---
Pre-Anesthetic Assessment Height/Weight: Height 1.6 m Weight 51.71 kg Temp Pulse Resp BP Pulse Ox O2 Del Method 97.1 F L 80 17 104/64 100 Room Air 04/23/23 06:04 04/23/23 06:04 04/23/23 06:04 04/23/23 06:04 04/23/23 06:04 04/23/23 06:06 Preop Diagnosis: Chronic cholecystitis Operation Date: 04/23/23 07:00 Proposed Procedures p [id number] lap jaymie K82.9(Not Applicable) - Steven Fox MD Familial anesthetic complications: none Was Beta Harjinder taken within 24 hours: N/A Was Clonidine taken within 24 hours: N/A Last intake: Intake Last Liquid Date 04/22/23 Last Liquid Time 22:00 Last Solid Date 04/22/23 Last Solid Time 19:00 Social Tobacco and No alcohol Exam alert, oriented x 3 and regular rate & rhythm Airway Submandibular: within normal limits Cervical ROM: within normal limits Mallampati: Class II Dentition: full Pulmonary Chronic Obstructive Pulmonary Disease Neuropsych Anxiety Anesthetic Plan ASA status: 2 Anesthesia: General Other: 5 week , multiple ED visits for jaymie--surgery strongly recommends jaymie removed now, pt. agreeable and not concerned with loss of Medications/Allergies Home Medications Medication Instructions Recorded Confirmed Last Taken Type No Known Home Medications 04/22/23 04/22/23 Unknown History Allergies Allergy/AdvReac Type Severity Reaction Status Date / Time acetaminophen [From Tylenol] Allergy Unknown Verified 04/22/23 12:18 amoxicillin [From Amoxil] Allergy ALGY-Anaphy Verified 04/22/23 12:18 laxis latex Allergy ALGY-Rash Verified 04/22/23 12:18 Sulfa (Sulfonamide Allergy ALGY-Anaphy Verified 04/22/23 12:18 Antibiotics) laxis Current Medications Generic Name Dose Route Start Last Admin Trade Name Freq PRN Reason Stop Dose Admin Sodium Chloride 1,000 mls @ 30 mls/hr 04/23/23 06:00 04/23/23 06:24 Sodium Chloride 0.9% IV 04/24/23 05:59 30 mls/hr .Q24H TEDDY Administration PFSH Anesthesia Family History Denies family history of Colon cancer Ovarian cancer Diabetes Heart disease Breast cancer Hypertension Uterine cancer Thyroid disease Stroke Social History Smoking and tobacco/nicotine status: current some day tobacco/nicotine user cigarettes Data Anesthesia Cardiac Studies: No Data to Display
[2023-04-23] MEDS: BUPivacaine 0.25% INJ 10 mL INJECTION (07:31)
[2023-04-23] MEDS: lidocaine-epi 2% 20 mL INJ INJECTION (07:31)
--- NOTE | 2023-04-23 08:25 | P.OP_ITS ---
Operative Report Date of procedure: April 23, 2023 Pre-op diagnosis: Chronic cholecystitis Post-op diagnosis: Chronic cholecystitis, cholelithiasis Post-op findings: There were adhesions from the omentum to the gallbladder wall. There was significant thickening of the gallbladder wall and inflammation around the hepatocystic triangle. Gallbladder noted to be full of stones. Procedure done: Laparoscopic cholecystectomy Specimens removed/disposition: Gallbladder Surgeon: Steven Fox MD Manager Administrative: FAUSTINA OR Staff Complications: None Brief History: 33-year-old female with history of multiple episodes of acute cholecystitis over the last year or so, I evaluated patient in the clinic and offer laparoscopic cholecystectomy since then patient has presented to the ED 2 more times with acute cholecystitis, I have discussed with the patient proceeding with surgery if in the there is risk for significant formation being present due to the chronicity of symptoms. After discussion of all risk benefits as documented in my preop note we decided to proceed to the operating room for laparoscopic cholecystectomy. Procedure: Patient was brought into the OR, she was placed in the supine position, general esthesia was given and patient intubated. The abdomen was prepped and draped in the usual sterile fashion. Timeout was conducted. The abdomen was accessed via infraumbilical incision using an open technique, a 12 mm Mireles trocar was placed and fixed to the fascia with #0 Vicryl. Initial laparoscopy showed no evidence of visceral injury. Additional trocars were placed in the epigastric right upper quadrant and right flank positions. The gallbladder was retracted cephalad, there was significant additions from the omentum to the gallbladder wall, these additions were taken down with hook and blunt dissection. Once the gallbladder was free of additions I retracted the infundibulum in the inferolateral direction to expose the hepatocystic triangle. Significant inflammation was noted at this level. The peritoneum anterior to hepatocystic triangle was opened with hook, this opening was carried in the medial and lateral direction to the edges of the liver and then on the sides of the gallbladder to allow better exposure. Careful dissection of the hepatocystic triangle was done the cystic duct and artery were able to be encircled, the lower third of the gallbladder was elevated from the cystic plate, critical view of safety was achieved. The cystic duct and artery were double clipped proximally and singly clipped distally and transected. The gallbladder was removed from the liver bed using electrocautery. Hemostasis was verified, no evidence of blood or bile noted on the liver bed. The gallbladder was then retrieved via the umbilical trocar site on an Endo Catch bag. The umbilical trocar site was then closed under direct visualization using #0 Vicryl in a suture passer with 2 [id number] sutures. The epigastric trocar was removed under direct visualization and the other 2 trocars were used to evacuate the pneumoperitoneum and subsequently removed. Local anesthesia was infiltrated in the trocar sites, the wounds were closed in layers using #4 Monocryl for the skin. Dermabond was applied. At the end of the procedure all counts were correct, patient tolerated well the procedure and was transferred to the PACU in stable condition.
[2023-04-23] MEDS: ondansetron 2 mg/ML SDV 2 mL 4 MG IVP (08:50)
[2023-04-23] MEDS: fentaNYL 50 mcg/mL INJ 2mL IVP (08:55)
--- NOTE | 2023-04-23 16:25 | ANE.PACU2 ---
Inpatient post-anesthesia follow up: Airway intact: Yes Vital signs: Temperature 98.3 F Pulse Rate 68 Respiratory Rate 16 Blood Pressure 106/67 Pulse Oximetry 100 Oxygen Delivery Me thod Room Air Oxygen Flow Rate 6 Fraction of Inspir ed Oxygen Hydration adequate: Yes Nausea and vomiting: No Pain level: 3 Mental status: Baseline
== END 2023-04-23 09:53 | disposition home or self-care (01) ==
PROVIDERS: Visit Provider Surgery
PROC: 0FT44ZZ Resection of Gallbladder, Percutaneous Endoscopic Approach (ICD-10-PCS; CPT 47562; principal; 2023-04-23 07:00)
DX: K80.10 Calculus of gallbladder with chronic cholecystitis without obstruction (principal); J44.9 Chronic obstructive pulmonary disease, unspecified; F17.210 Nicotine dependence, cigarettes, uncomplicated
CPT/HCPCS: 47562; 88304; J1100; J2250; J2405; J2704; J2710; J3010; J3370; J3490; J7030; J7050

== ENCOUNTER 2023-04-24 14:55 | Emergency (ER) | payer OTHER, SELFPAY ==
--- NOTE | 2023-04-24 15:03 | XR_ITS ---
WS: [id number] Portable AP upright chest, 04/24/2023 Clinical Data: cough Comparison: None. Findings: No nodules, masses or effusions are seen. The heart is normal. The pulmonary vascularity is not increased. No pneumonia or pneumothorax is seen. Impression: Negative chest.
--- NOTE | 2023-04-24 15:20 | ED_ITS ---
HPI - URI/Sore Throat General: Chief Complaint: Upper Respiratory Infection Stated Complaint: congestion, post op 04/23/2023 Time Seen by Provider: 04/24/23 15:13 Source: patient Mode of arrival: ambulatory Limitations: no limitations History of Present Illness: 33-year-old female states she had her ga llbladder removed yesterday states today she has had some cough and congestion. States she is coughed up some mucus. She denies any fevers she denies any chest pain she denies any worsening proving factors denies any severe shortness of breath. Associated symptoms: Deny abdominal pain, chills, chest pain, diarrhea, fever(s), headache(s), nausea or vomiting Review of Systems Const: Denies: fever(s), chills, body aches or change in appetite ENMT: Denies: throat pain or dental pain Card: Denies: chest pain Resp: Reports: non-productive cough; Denies: dyspnea GI: Denies: abdominal pain, nausea, vomiting or diarrhea Musc: Denies: neck pain or back pain Skin/Breast: Denies: rash Neuro: Denies: headache(s) PFSH ED PFSH: Family History Denies family history of Colon cancer Ovarian cancer Diabetes Heart disease Breast cancer Hypertension Uterine cancer Thyroid disease Stroke Social History Smoking and tobacco/nicotine status: current some day tobacco/nicotine user cigarettes Physical Exam Const: COMMON NORMALS: no acute distress, patient oriented x3 and healthy appearing HENMT: COMMON NORMALS: normocephalic and atraumatic HEAD & SCALP: normocephalic and atraumatic Neck/C-Spine: COMMON NORMALS: full ROM and supple Chest: COMMONS NORMALS: normal inspection of the chest Resp: COMMON NORMALS: normal respiratory effort, No retractions, No use of accessory muscles and clear to auscultation bilaterally AUSCULTATION: clear to auscultation bilaterally Cardio: COMMON NORMALS: regular rate, regular rhythm and No murmurs present (Cardio) RATE: regular rate RHYTHM: regular rhythm Extremity: COMMON NORMALS: normal to inspection and full ROM Neuro: COMMON NORMALS: patient oriented x3, moves all extremities and no focal motor deficits Psych: COMMON NORMALS: mental status grossly normal, Normal thought process present and cooperative THOUGHT PROCESS: Normal thought process present Skin: COMMON NORMALS: no rashes or lesions noted and no wounds GENERAL SKIN EXAM: no rashes or lesions noted Course Vital Signs: Vital signs: Vital Signs Temperature 97.7 F 04/24/23 15:21 Pulse Rate 83 04/24/23 15:21 Respiratory Rate 18 04/24/23 15:21 Blood Pressure 105/73 04/24/23 15:21 Pulse Oximetry 98 04/24/23 15:25 Oxygen Delivery Me thod Room Air 04/24/23 15:25 MDM - URI/Sore Throat Medical Decision Making Patient presents with cough congestion likely URI or could be from being intubated yesterday she has no signs of pneumonia COVID flu here is negative she is well-appearing here in no distress she is stable for discharge follow-up PCP and return if worsening. Medical Records I reviewed the patient's medical records. Lab Data I reviewed the patient's lab results. Laboratory Results Influenza Type A Ag negative (Negative) 04/24/23 15:20 Influenza Type B Ag negative (Negative) 04/24/23 15:20 SARS-CoV-2 Ag (Rapid) negative (Negative) 04/24/23 15:20 All radiology interpretation(s) finalized by discharge Discharge Plan Discharge Patient Disposition: Home Clinical Impression: Upper respiratory infection Qualifiers: URI type: unspecified URI Qualified Code(s): J06.9 - Acute upper respiratory infection, unspecified Condition: Stable Prescriptions: No Action ondansetron 8 mg tablet,disintegrating 8 mg PO Q8H PRN (Reason: nausea and vomiting) Qty: 20 0RF meloxicam 15 mg tablet 15 mg PO DAILY Qty: 10 0RF oxycodone 5 mg tablet 5 mg PO Q8H PRN (Reason: pain) Qty: 14 0RF Discharge Orders: Discharge ED (Routine); Ordered 04/24/23 Ordered By: Gavin Duvall Discharge Diet: Advance as tolerated Discharge Activity: Resume usual activity Patient Instructions: Upper Respiratory Infection (ED) Coding Level of Care Code ED Healthcare Management Consultant for Nahid Groves
[2023-04-24 15:21] VITALS: BP 105/73; PULSE 83; RESP 18; TEMP 36.5; O2SAT 95
[2023-04-24 15:25] VITALS: O2SAT 98
[2023-04-24 16:01] LABS: Influenza A by IFA negative (Negative); Influenza B by IFA negative (Negative)
[2023-04-24 16:02] LABS: SARS Covid-2 Antigen negative (Negative)
== END 2023-04-24 16:07 | disposition home or self-care (01) ==
PROVIDERS: Emergency Provider Emergency Medicine
DX: J06.9 Acute upper respiratory infection, unspecified (principal); Z11.52 Encounter for screening for COVID-19; F17.210 Nicotine dependence, cigarettes, uncomplicated
CPT/HCPCS: 71045; 87426; 87804; 99284

== ENCOUNTER → 2023-04-30 08:06 | Outpatient (BNVA) | payer OTHER, SELFPAY | PROVIDERS: Visit Provider Obstetrics & Gynecology | DX: Z36.2 Encounter for other antenatal screening follow-up (principal) | CPT/HCPCS: 76817 ==

== ENCOUNTER → 2023-05-14 13:25 | Outpatient (BNVA) | payer OTHER, SELFPAY | PROVIDERS: Visit Provider Nurse Practitioner Women's Health | DX: Z34.90 Encounter for supervision of normal pregnancy, unspecified, unspecified trimester (principal) | CPT/HCPCS: 80307; 81000; 84439; 84443; 84481; 85025; 86592; 86762; 86803; 86850; 86900; 87086; 87340; 87806 ==

== ENCOUNTER → 2023-06-04 08:58 | Outpatient (BNVA) | payer OTHER, SELFPAY | PROVIDERS: Visit Provider Obstetrics & Gynecology | DX: Z34.90 Encounter for supervision of normal pregnancy, unspecified, unspecified trimester (principal) | CPT/HCPCS: 81000 ==

== ENCOUNTER → 2023-07-03 14:50 | Outpatient (BNVA) | payer OTHER, SELFPAY | PROVIDERS: Visit Provider Nurse Practitioner Women's Health | DX: Z34.80 Encounter for supervision of other normal pregnancy, unspecified trimester (principal) | CPT/HCPCS: 81000 ==

== ENCOUNTER 2023-07-16 13:40 | Emergency (ER) | payer OTHER, SELFPAY ==
[2023-07-16 13:43] VITALS: BP 89/60; PULSE 98; RESP 18; TEMP 36.8; O2SAT 100
--- NOTE | 2023-07-16 14:29 | W.ED.URI ---
HPI - URI/Sore Throat General: Chief Complaint: Upper Respiratory Infection Stated Complaint: sent by lucy guerra Time Seen by Provider: 07/16/23 14:01 Source: patient Mode of arrival: ambulatory Limitations: no limitations History of Present Illness: Patient is a 33-year-old female who presents to ED today stating she was sent here by Dr. Benítez for chest x-ray. Patient tells me over the past 3 days she has had body aches, cough, nasal congestion/sinus pain, headache, ear pain/pressure, and vomiting. She states she is able to hold down fluids normally and has been drinking normal amounts but states she is vomiting when she tries to eat. She has had positive flu B and COVID exposure recently with her children. Patient denies chest pain, shortness of breath, difficulty breathing. Blood pressure slightly low upon arrival although looking at previous documentation she is always on the softer side. MD elicited complaint: cough, nasal congestion, sinus pain and other (headache, body aches, ear pain) Onset (ago): day(s) (3 days) Consistency: constant Severity: moderate Description of mucous: clear Able to tolerate fluids by mouth: Yes Exacerbating factors: nothing Relieving factors: nothing Context: sick contacts Associated symptoms: Reports ear or mastoid pain, headache(s), nasal congestion and vomiting; Deny abdominal pain, chest pain, diarrhea or fever(s) Treatments prior to arrival: none Review of Systems Const: Reports: body aches; Denies: fever(s) Eyes: Denies: change in vision, blurry vision, photophobia, floaters or seeing flashes ENMT: Reports: ear or mastoid pain and nasal congestion; Denies: throat pain, odynophagia or ear discharge Card: Denies: chest pain Resp: Reports: productive cough; Denies: dyspnea GI: Reports: vomiting; Denies: abdominal pain or diarrhea : Denies: flank pain or dysuria Musc: Denies: neck pain, back pain, extremity pain or joint pain Skin/Breast: Denies: rash Neuro: Reports: headache(s) PFSH ED PFSH: Family History Denies family history of Colon cancer Ovarian cancer Diabetes Heart disease Breast cancer Hypertension Uterine cancer Thyroid disease Stroke Social History (Reviewed 03/27/24 @ 15:45 by DMITRI Ragsdale Smoking and tobacco/nicotine status: current some day tobacco/nicotine user cigarettes Female Reproductive History: Date of last menstrual period: 03/17/23 Physical Exam Const: COMMON NORMALS: no acute distress, average body habitus, patient oriented x3, no limitations, healthy appearing, alert and well nourished GENERAL APPEARANCE: cooperative ORIENTATION/CONSCIOUSNESS: Yes awake, Yes oriented to person, Yes oriented to place and Yes oriented to time HENMT: COMMON NORMALS: normocephalic, atraumatic, hearing grossly normal bilaterally, external ears normal, EAC's normal, TM's normal bilaterally, Normal external nose present, Normal nasal mucous membranes and turbinates present, moist oral mucous membranes and oropharynx normal HEAD & SCALP: normal to inspection, normocephalic and atraumatic FACE & SINUS: normal facial exam and sinuses nontender NOSE: Normal external nose present and Normal nasal mucous membranes and turbinates present EXTERNAL EAR: Yes external ears normal EXTERNAL AUDITORY CANAL: EAC's normal TYMPANIC MEMBRANE: TM's normal bilaterally THROAT: posterior oropharynx normal, tonsils normal and uvula midline Eye: COMMON NORMALS: Equal, round and reactive pupils present, EOMs intact bilaterally and conjunctivae normal CONJUNCTIVA: Yes conjunctivae normal PUPIL: Yes Equal, round and reactive pupils present Neck/C-Spine: COMMON NORMALS: no lymphadenopathy Resp: COMMON NORMALS: normal respiratory effort and clear to auscultation bilaterally AUSCULTATION: clear to auscultation bilaterally Cardio: COMMON NORMALS: regular rate and regular rhythm RATE: regular rate RHYTHM: regular rhythm Extremity: GENERAL: Yes normal exam except as noted Neuro: KAREN COMA SCALE: document GCS findings [place] coma scale eye opening: Spontaneous Karen coma scale verbal response: Orientated Karen coma scale motor response: Obey commands Karen coma scale total score: 15 COMMON NORMALS: patient oriented x3 SENSORIUM/ORIENTATION: Yes alert, Yes oriented to person, Yes oriented to place and Yes oriented to time Skin: COMMON NORMALS: no rashes or lesions noted GENERAL SKIN EXAM: no rashes or lesions noted Course Vital Signs: Vital signs: Vital Signs Temperature 98.2 F 07/16/23 13:43 Pulse Rate 89 07/16/23 15:08 Respiratory Rate 18 07/16/23 13:43 Blood Pressure 99/57 07/16/23 15:08 Pulse Oximetry 97 07/16/23 15:08 Oxygen Delivery Me thod Room Air 07/16/23 14:50 MDM - URI/Sore Throat Medical Decision Making Patient appears in no acute distress. Her blood pressure is soft although looking at previous documentation it is always on the lower side. She has no complaints of lightheadedness or dizziness. She states she is drinking normally. Has had some issues holding down food with vomiting since illness started. No diarrhea or abdominal pain. She is influenza B+. She states she was sent for a chest x-ray. She has no complaints of chest pain, shortness of breath, or difficulty breathing. Her lung sounds are clear. She states she does not want this if not necessary. Told her ideally I would give her a liter of fluids but she declined stating she needs to potato picker her son from school. Did offer Tamiflu to which she declines. Recommend rest and pushing fluids. Return to ED precautions given. Medical Records I reviewed the patient's medical records. Lab Data I reviewed the patient's lab results. Laboratory Results Influenza Type A Ag Negative (Negative) 07/16/23 14:07 Influenza Type B Ag Positive (Negative) H 07/16/23 14:07 SARS-CoV-2 Ag (Rapid) negative (Negative) 07/16/23 14:07 No radiology studies performed this visit Discharge Plan Discharge Patient Disposition: Home Clinical Impression: Influenza B Condition: Stable Prescriptions: No Action ondansetron 8 mg tablet,disintegrating 8 mg PO Q8H PRN (Reason: nausea and vomiting) Qty: 60 3RF Discharge Orders: Discharge ED (Routine); Ordered 07/16/23 Ordered By: Adriana Gamez Referrals: Gaudencio Benítez MD [Primary Care Provider] - Patient Instructions: Influenza (ED) Coding Level of Care Code ED Position Clerk for Nahid Groves
[2023-07-16 14:35] LABS: Influenza A by IFA Negative (Negative); Influenza B by IFA Positive (Negative)
[2023-07-16 14:40] LABS: SARS Covid-2 Antigen negative (Negative)
[2023-07-16 15:08] VITALS: BP 99/57; PULSE 89; O2SAT 97
== END 2023-07-16 15:09 | disposition home or self-care (01) ==
PROVIDERS: Emergency Medicine; Emergency Provider Physician Assistant; PCP Obstetrics & Gynecology
DX: J10.1 Influenza due to other identified influenza virus with other respiratory manifestations (principal); Z11.52 Encounter for screening for COVID-19; F17.210 Nicotine dependence, cigarettes, uncomplicated
CPT/HCPCS: 81000; 87426; 87804; 99283

== ENCOUNTER → 2023-07-30 14:26 | Outpatient (BNVA) | payer OTHER, SELFPAY | PROVIDERS: PCP Obstetrics & Gynecology; Visit Provider Obstetrics & Gynecology | DX: O26.892 Other specified pregnancy related conditions, second trimester (principal); Z3A.20 20 weeks gestation of pregnancy | CPT/HCPCS: 76805 ==

== ENCOUNTER → 2023-08-29 08:03 | Outpatient (BNVA) | payer OTHER, SELFPAY | PROVIDERS: PCP Obstetrics & Gynecology; Visit Provider Nurse Practitioner Women's Health | DX: Z34.80 Encounter for supervision of other normal pregnancy, unspecified trimester (principal) | CPT/HCPCS: 81000 ==

== ENCOUNTER → 2023-09-01 10:30 | Outpatient (BNVA) | payer OTHER, SELFPAY | PROVIDERS: PCP Obstetrics & Gynecology; Visit Provider Obstetrics & Gynecology | DX: O26.892 Other specified pregnancy related conditions, second trimester (principal); Z3A.24 24 weeks gestation of pregnancy | CPT/HCPCS: 76816 ==

== ENCOUNTER → 2023-09-24 11:20 | Outpatient (BNVA) | payer OTHER, SELFPAY | PROVIDERS: PCP Obstetrics & Gynecology; Visit Provider Obstetrics & Gynecology | DX: Z34.80 Encounter for supervision of other normal pregnancy, unspecified trimester (principal) | CPT/HCPCS: 82950 ==

== ENCOUNTER 2023-10-01 16:25 | Outpatient (CLI) | payer OTHER, SELFPAY ==
[2023-10-01 16:50] VITALS: BMI 23.7
[2023-10-01 16:53] VITALS: BP 94/52; PULSE 92
[2023-10-01 18:11] VITALS: BP 109/57; PULSE 94
[2023-10-01 18:20] VITALS: BP 109/57; PULSE 94
== END 2023-10-01 18:20 | disposition home or self-care (01) ==
LOC: OPOB 16:32 → OBGYN 16:35
PROVIDERS: PCP Obstetrics & Gynecology; Visit Provider Obstetrics & Gynecology
DX: O26.899 Other specified pregnancy related conditions, unspecified trimester (principal); Z3A.00 Weeks of gestation of pregnancy not specified; N89.8 Other specified noninflammatory disorders of vagina; R10.2 Pelvic and perineal pain
CPT/HCPCS: 59025; 99211

== ENCOUNTER 2023-10-15 19:59 | Outpatient (CLI) | payer OTHER, SELFPAY ==
[2023-10-15 20:21] VITALS: BP 95/50; PULSE 83; TEMP 35.5
[2023-10-15 20:23] VITALS: BMI 23.9
[2023-10-15 20:24] VITALS: RESP 18
[2023-10-15 20:37] VITALS: BP 95/55; PULSE 79
[2023-10-15 20:53] VITALS: BP 101/59; PULSE 87
[2023-10-15 21:18] LABS: Bilirubin Urine Neg (Negative); Blood Urine Neg (Negative); Glucose Urine UA Norm (Normal); Ketones Urine 1+ (Negative); Leukocyte Esterase Urine Negative (Negative); Nitrate Urine Negative (Negative); Protein Urine Neg (Negative); Urine Appearance Clear (CLEAR); Urine Color Yellow (Yellow); Urobilinogen Urine Neg (Negative); pH Urine 6 (5-7)
[2023-10-15 21:35] LABS: Add Urine Microscopic? YES
[2023-10-15 21:45] LABS: Add Urine Culture? No; Bacteria Urine TRACE /hpf; Squamous Epithelial Cell Urine 15-25 /hpf (0-5)
== END 2023-10-15 21:59 | disposition home or self-care (01) ==
LOC: OPOB 20:03 → OBGYN 20:04
PROVIDERS: Visit Provider Obstetrics & Gynecology
DX: O26.899 Other specified pregnancy related conditions, unspecified trimester (principal); Z3A.00 Weeks of gestation of pregnancy not specified; R10.2 Pelvic and perineal pain; M54.9 Dorsalgia, unspecified
CPT/HCPCS: 81001

== ENCOUNTER → 2023-10-29 15:12 | Outpatient (BNVA) | payer OTHER, SELFPAY | PROVIDERS: Visit Provider Obstetrics & Gynecology | DX: Z34.80 Encounter for supervision of other normal pregnancy, unspecified trimester (principal) | CPT/HCPCS: 76816 ==

== ENCOUNTER → 2023-11-18 10:00 | Outpatient (BNVA) | payer OTHER, SELFPAY | PROVIDERS: Visit Provider Obstetrics & Gynecology | DX: Z34.80 Encounter for supervision of other normal pregnancy, unspecified trimester (principal) | CPT/HCPCS: 81000; 87081 ==

== ENCOUNTER → 2023-11-25 07:58 | Outpatient (BNVA) | payer OTHER, SELFPAY | PROVIDERS: Visit Provider Obstetrics & Gynecology | DX: Z34.80 Encounter for supervision of other normal pregnancy, unspecified trimester (principal) | CPT/HCPCS: 81000 ==

== ENCOUNTER 2023-12-07 12:23 | Outpatient (CLI) | payer OTHER, SELFPAY ==
[2023-12-07] VITALS (12 sets, daily range): BP systolic 95–118; BP diastolic 56–66; PULSE 76–108; BMI 23.9
== END 2023-12-07 15:44 | disposition home or self-care (01) ==
LOC: OPOB 12:23 → OBGYN 12:24
PROVIDERS: Visit Provider Obstetrics & Gynecology
DX: O26.899 Other specified pregnancy related conditions, unspecified trimester (principal); Z3A.00 Weeks of gestation of pregnancy not specified; R10.9 Unspecified abdominal pain
CPT/HCPCS: 59025; 99211

== ENCOUNTER 2023-12-12 15:36 | Observation (INO) | payer OTHER, SELFPAY ==
[2023-12-12] VITALS (16 sets, daily range): BP systolic 97–116; BP diastolic 51–66; PULSE 69–91; RESP 16–18
[2023-12-12 18:11] LABS: Basophils # 0.1 10^3/uL (0.0-0.1); Basophils % 0.5 %; Eosinophils # 0.1 10^3/uL (0.0-0.8); Eosinophils % 0.7 %; Lymphocytes # 2.1 10^3/uL (0.8-4.8); Mean Corpuscular HGB Conc 33.2 g/dL (30-55); Mean Corpuscular Hemoglobin 30.5 pg (27-33); Mean Corpuscular Volume 91.9 fl (85-98); Mean Platelet Volume 13.8 fL (7.4-10.4); Monocytes # 0.5 10^3/uL (0.2-0.9); Monocytes % 5.5 %; Neutrophils % 70.9 %; Nucleated Red Blood Cells % 0 %; Platelet Count 239 10^3/cmm (157-399); Red Cell Distribution Width 13.6 % (12.1-15.1)
[2023-12-12] MEDS: miSOPROStol 100 mcg tablet 25 MCG VAGINAL (20:30)
[2023-12-13] VITALS (7 sets, daily range): BP systolic 92–126; BP diastolic 59–73; PULSE 68–82; RESP 16; TEMP 36.7
--- NOTE | 2023-12-13 08:14 | P.HP_ITS ---
Providers/Chief Complaint 2 Admitting Physician: Gaudencio Benítez MD Chief Complaint: IOL HPI CENSUS TAKER History of Present Illness Helen Jack is a 33 year old female [id number] with PRERNA 12/16/2023 admitted to labor and delivery for induction of labor, at 39.3 weeks gestation. On initial presentation patient cervix was 1 cm/thick/vertex presentation. Ripening of the cervix with 1 dose of Cytotec was done. During the night patient discussed with nursing staff increased movement. Patient cervix was reexamined, presentation had changed to breech. No other doses of Cytotec were given and patient was allowed to rest through the night. This a.m. patient again voiced increased movement and with cervical exam and bedside ultrasound Vertex presentation was confirmed. I examined patient, cervix is 1 cm, thick/-2 vertex presentation. I discussed with the patient induction with Pitocin to start contractions since baby is vertex presentation has been confirmed. The vertex is engaged, so I would not expect another change in position but if it does occur without rupture of membranes the option of discontinuing induction and her returning on Friday for reevaluation and continuation of induction versus primary . Patient understands. Risk of this baby changing positions are risk of cord prolapse has been reviewed with patient and she understands that either could result in delivery. Present Details : 5 Para: 4 Labs Rubella: Immune RPR: Negative GBS: Negative Review of Systems 2 Narrative: 33-year-old female awake and alert denie s any complaints. Review of systems is negative. Medications/Allergies Allergies Allergy/AdvReac Type Severity Reaction Status Date / Time acetaminophen [From Tylenol] Allergy Unknown Verified 12/02/23 09:21 amoxicillin [From Amoxil] Allergy ALGY-Anaphy Verified 12/02/23 09:21 laxis latex Allergy ALGY-Rash Verified 12/02/23 09:21 Sulfa (Sulfonamide Allergy ALGY-Anaphy Verified 12/02/23 09:21 Antibiotics) laxis PFSH CENSUS TAKER 2 PFSH: Family History Denies family history of Colon cancer Ovarian cancer Diabetes Heart disease Breast cancer Hypertension Uterine cancer Thyroid disease Stroke Social History Smoking and tobacco/nicotine status: current every day tobacco/nicotine user cigarettes History History History 2 7 Term 3 1 Miscarriages/Ectopic 2 Living Children 4 Care PRERNA Calculator 2 Estimated Delivery Date Method Current WG Current Estimate 12/16/23 LMP (Certain) 39w 4d Expected Delivery Route/Plan Plans for induction of labor for discussed. Risk of possible primary C- section also reviewed. Vitals/I&O/Wt Last Vital Signs Pulse 68 12/13/23 02:36 Resp 16 12/12/23 18:00 BP 111/73 12/13/23 02:36 O2 Del Method Room Air 12/12/23 16:49 Physical Exam 2 Const: COMMON NORMALS: no acute distress, patient oriented x3, no limitations, healthy appearing, alert and well nourished HENMT: COMMON NORMALS: normocephalic and moist oral mucous membranes Resp: COMMON NORMALS: normal respiratory effort and clear to auscultation bilaterally Cardio: COMMON NORMALS: regular rate and regular rhythm Back/Pelvis: OTHER: Cervix?1 cm/thick/-2 vertex presentation Extremity: COMMON NORMALS: no clubbing, cyanosis or edema and no calf tenderness Neuro: COMMON NORMALS: patient oriented x3, CN's II-XII intact bilaterally, moves all extremities and deep tendon reflexes 2+ bilaterally Data 12/12/23 17:25 Results Labs OB ([facility]): 2 Obstetrics US 10/29/23 Blood Type O Positive 12/12/23 Antibody Screen Negative 12/12/23 Hct 34.0 % (36-47) L 12/12/23 Hgb 11.30 g/dL (11.27-16.99) 12/12/23 Rho(D) Type Rh positive 12/12/23 Plt Count 239 10^3/cmm (157-399) 12/12/23 Hep Bs Antigen Non-reactive (Nonreactive) 05/14/23 Hepatitis C Antibody Non-reactive (Nonreactive) 05/14/23 Rubella IgG Antibody 470.7 IU/mL (0.0-10.0) H 05/14/23 RPR Nonreactive (Nonreactive) 05/14/23 HIV 1&2 Ab & HIV 1 Ag Non-reactive (Non-Reactiv) 05/14/23 TSH 1.14 uIU/mL (0.27-4.20) 05/14/23 Free T4 1.21 ng/dL (0.82-1.77) 05/14/23 Cystic Fibrosis Screen Negative 05/14/23 Glucose 1 Hr 50 gm 84 mg/dL (85-140) L 09/24/23 Ser , Semi-Qnt 2009.00 mIU/mL 04/15/23 HCG, Qual Positive (Negative) H 04/09/23 Urine Opiates Screen Negative ng/mL (Negative) 05/14/23 Ur Barbiturates Screen Negative ng/mL (Negative) 05/14/23 Ur Phencyclidine Scrn Negative ng/mL (Negative) 05/14/23 Ur Amphetamines Screen Negative ng/mL (Negative) 05/14/23 U Benzodiazepines Scrn Negative ng/mL (Negative) 05/14/23 Urine Cocaine Screen Negative ng/mL (Negative) 05/14/23 U Marijuana (THC) Screen Negative ng/mL (Negative) 05/14/23 Micro Urine Specimen 05/14/23 A&P Assessment and plan (1) 39 weeks gestation of : Patient was admitted for induction of labor. Patient has had 1 dose of Cytotec we will now proceed with Pitocin induction, risk and benefits reviewed. Bedside ultrasound?confirms vertex presentation. History of fast deliveries with 1 home delivery. Patient has had sterilization consultation. (2) Multiparity: (3) Supervision of other normal : Attestations 2 Medical Necessity Statement*: Admission for induction of labor at 39.3 weeks gestation. Coding Level of Care Code Acute Code for Chg Fwd Diagnoses 39 weeks gestation of Z3A.39 Multiparity Z64.1 Supervision of other normal Z34.80
--- NOTE | 2023-12-13 09:22 | PC.NURSE ---
12/13/23 0910 Patient approached this nurse at nurses station and asked can we talk about a few things? I just want to go over my options again. Patient stated My woke up and we talked about our conversation with Dr. Bang. We are both feeling nervous about starting the induction instead of letting my body go into labor naturally. I would also like to go home and set up another senior php web developer, since we've already had to find childcare for the past three days. We would like to go home if it is safe for me to do that. We just want to make sure there is no medical reason I need to stay and be induced. This nurse communicated that baby had a reactive NST, the last cytotec was given at 2030 last night and is no longer in her system, and that this nurse will contact Dr. Bang to see if there is any medical reason for her to stay and be induced.
--- NOTE | 2023-12-13 10:23 | PC.NURSE ---
12/13/23 8232 This nurse and patient discussed phone conversation had with Dr. Bang, discussed that Dr. Bang stated she has no concerns with patient going home and that Dr. Bang stated patient has no medical reason for patient to stay for induction. Discussed Dr. Bang's orders to discharge patient home, patient states I am comfortable with that. This nurse asked patient if her contractions or pressure in pelvis felt any more intense than when Dr. Bang was here. Patient states the pain and pressure is about the same.
--- NOTE | 2023-12-13 10:30 | PC.NURSE ---
12/13/23 1015 Patient states her follow-up appointments for Friday and the next week were cancelled due to induction being scheduled. This nurse instructed patient to call her Dr's office first thing Friday morning to reschedule an appointments as soon as she can get in.
== END 2023-12-13 10:20 | disposition home or self-care (01) ==
LOC: OBGYN 22:03
PROVIDERS: Admitting Provider Obstetrics & Gynecology; Visit Provider Obstetrics & Gynecology
DX: O61.0 Failed medical induction of labor (principal); Z3A.39 39 weeks gestation of pregnancy; Z64.1 Problems related to multiparity
CPT/HCPCS: 36415; 59025; 85025; 86850; 86900; G0378

== ENCOUNTER → 2023-12-16 08:09 | Outpatient (BNVA) | payer OTHER, SELFPAY | PROVIDERS: Visit Provider Obstetrics & Gynecology | DX: Z34.80 Encounter for supervision of other normal pregnancy, unspecified trimester (principal) | CPT/HCPCS: 81000 ==

== ENCOUNTER 2023-12-18 23:10 | Outpatient (CLI) | payer OTHER, SELFPAY ==
[2023-12-18 23:10] VITALS: BMI 24.3
[2023-12-18 23:35] VITALS: BP 115/67; PULSE 82
[2023-12-18 23:50] VITALS: BP 109/59; PULSE 80
[2023-12-19 00:05] LABS: Actim Prom Negative
[2023-12-19 00:06] VITALS: BP 106/60; PULSE 80
[2023-12-19 00:16] VITALS: BP 105/62; PULSE 79
[2023-12-19 00:30] VITALS: BP 105/62; PULSE 79; RESP 15
== END 2023-12-19 00:31 | disposition home or self-care (01) ==
LOC: OPOB 23:19 → OBGYN 23:20
PROVIDERS: Visit Provider Obstetrics & Gynecology
DX: O26.899 Other specified pregnancy related conditions, unspecified trimester (principal); Z3A.00 Weeks of gestation of pregnancy not specified; R10.9 Unspecified abdominal pain; R10.2 Pelvic and perineal pain
CPT/HCPCS: 59025; 84112

== ENCOUNTER 2023-12-22 13:19 | Inpatient (IN) | payer OTHER, SELFPAY ==
[2023-12-22] VITALS (41 sets, daily range): BP systolic 95–121; BP diastolic 58–76; PULSE 66–101; TEMP 35.9–36.1; BMI 23.7
[2023-12-22 14:46] LABS: Basophils % 0.4 %; Eosinophils # 0.1 10^3/uL (0.0-0.8); Eosinophils % 0.8 %; Lymphocytes # 1.3 10^3/uL (0.8-4.8); Lymphocytes % 12.9 %; Mean Corpuscular HGB Conc 33.2 g/dL (30-55); Mean Corpuscular Hemoglobin 30.2 pg (27-33); Mean Corpuscular Volume 91.1 fl (85-98); Mean Platelet Volume 13.5 fL (7.4-10.4); Monocytes # 0.4 10^3/uL (0.2-0.9); Monocytes % 4.1 %; Neutrophils # 8.41 10^3/uL (1.8-7.7); Neutrophils % 81.3 %; Nucleated Red Blood Cells % 0 %; Platelet Count 204 10^3/cmm (157-399); Red Blood Count 4.17 10^6/uL (3.85-5.65); Red Cell Distribution Width 13.6 % (12.1-15.1); White Blood Count 10.33 10^3/uL (3.29-11.43)
--- NOTE | 2023-12-22 15:05 | P.HP_ITS ---
Providers/Chief Complaint 2 Admitting Physician: Gaudencio Benítez MD Primary HEAD START COORDINATOR: Gaudencio Benítez MD Chief Complaint: IOL HPI HEAD START COORDINATOR History of Present Illness Helen Jack is a 33 year old female 33 y.o. A2 EDC December 16, 2023 At 40 w 6 d No complications Admitted for induction of labor No c/o + active movements POBHx: x four Present Details : 7 Para: 4 Date of Last Menstrual Period: 03/11/23 Calculated Date of Delivery: 12/16/23 Gestational Age Based on Last Menstrual Period: 39 Labs Rubella: Immune RPR: Negative GBS: Negative Medications/Allergies Home Medications Medication Instructions Recorded Confirmed Last Taken Type No Known Home Medications 12/21/23 Unknown History Allergies Allergy/AdvReac Type Severity Reaction Status Date / Time acetaminophen [From Tylenol] Allergy Unknown Verified 12/19/23 01:00 amoxicillin [From Amoxil] Allergy ALGY-Anaphy Verified 12/19/23 01:00 laxis latex Allergy ALGY-Rash Verified 12/19/23 01:00 PFSH HEAD START COORDINATOR 2 PFSH: Family History Denies family history of Colon cancer Ovarian cancer Diabetes Heart disease Breast cancer Hypertension Uterine cancer Thyroid disease Stroke Social History Smoking and tobacco/nicotine status: current every day tobacco/nicotine user cigarettes History History History 2 7 Term 3 1 Miscarriages/Ectopic 2 Living Children 4 Care PRERNA Calculator 2 Estimated Delivery Date Method Current WG Current Estimate 12/16/23 LMP (Certain) 41w 0d Expected Delivery Route/Plan Plans for induction of labor for discussed. Risk of possible primary C- section also reviewed. Vitals/I&O/Wt Last Vital Signs Temp 97.0 F L 12/22/23 22:39 Pulse 96 12/23/23 04:00 BP 110/65 12/23/23 03:54 Pulse Ox 94 12/23/23 04:00 O2 Del Method Room Air 12/22/23 13:56 12/22/23 12/22/23 12/23/23 14:59 22:59 06:59 Intake Total 954.917 / 490.200 8570.75 / 2485.667 Balance 954.917 / 290.563 8216.75 / 2485.667 Weight last 48 hrs Weight 134 lb Physical Exam 2 Narrative: Weight 140 lbs; 5?3? VS normal General comfortable Lungs: clear Cor: RRR FH 37 cm, cephalic Sono by me: cephalic Normal heart motion Active movements Normal VALENCIA Cx: 1-2 cm / 50% / -2 / posterior Ext: no edema External monitor: heart tracing good variability, + accelerations Data 12/22/23 14:14 Results Labs OB ([facility]): 2 Obstetrics US 10/29/23 Blood Type O Positive 12/22/23 Antibody Screen Negative 12/22/23 Hct 38.0 % (36-47) 12/22/23 Hgb 12.60 g/dL (11.27-16.99) 12/22/23 Rho(D) Type Rh positive 12/22/23 Plt Count 204 10^3/cmm (157-399) 12/22/23 Hep Bs Antigen Non-reactive (Nonreactive) 05/14/23 Hepatitis C Antibody Non-reactive (Nonreactive) 05/14/23 Rubella IgG Antibody 470.7 IU/mL (0.0-10.0) H 05/14/23 RPR Nonreactive (Nonreactive) 05/14/23 HIV 1&2 Ab & HIV 1 Ag Non-reactive (Non-Reactiv) 05/14/23 TSH 1.14 uIU/mL (0.27-4.20) 05/14/23 Free T4 1.21 ng/dL (0.82-1.77) 05/14/23 Cystic Fibrosis Screen Negative 05/14/23 Glucose 1 Hr 50 gm 84 mg/dL (85-140) L 09/24/23 Ser , Semi-Qnt 2010.00 mIU/mL 04/15/23 HCG, Qual Positive (Negative) H 04/09/23 Urine Opiates Screen Negative ng/mL (Negative) 05/14/23 Ur Barbiturates Screen Negative ng/mL (Negative) 05/14/23 Ur Phencyclidine Scrn Negative ng/mL (Negative) 05/14/23 Ur Amphetamines Screen Negative ng/mL (Negative) 05/14/23 U Benzodiazepines Scrn Negative ng/mL (Negative) 05/14/23 Urine Cocaine Screen Negative ng/mL (Negative) 05/14/23 U Marijuana (THC) Screen Negative ng/mL (Negative) 05/14/23 Micro Urine Specimen 05/14/23 A&P Assessment and plan (1) Encounter for induction of labor: 40 w 6 d Admitted for labor induction Start Pitocin per protocol Attestations 2 Medical Necessity Statement*: patient at 40 w 6 d, admitted for induction of labor Coding Level of Care Code Acute Code for Chg Fwd Diagnoses Encounter for induction of labor Z34.90 Time Spent (min) 30
[2023-12-22 15:14] LABS: Slide Review Slide Review Perform
[2023-12-22] MEDS: oxytocin 30 UNIT/500 ML BAG IV (15:35)
[2023-12-22] MEDS: dextrose 5%-lactated ringers 1,000 ML 125 ML IV ×2 (15:36→22:53)
[2023-12-22 16:32] LABS: Glucose Point of Care 116 mg/dL (70-110)
[2023-12-23] VITALS (43 sets, daily range): BP systolic 95–147; BP diastolic 54–78; PULSE 60–106; RESP 16–18; TEMP 36.6–36.8; O2SAT 92–100; BMI 23.7
[2023-12-23] MEDS: lactated ringers 1,000 ML 999 ML IV ×2 (02:02→03:03)
[2023-12-23] MEDS: ROPivacaine syringe 100 MG/50 ML SYRINGE 10 MG EPIDURAL (03:16)
--- NOTE | 2023-12-23 03:25 | PM.DELIVERY ---
Delivery Note: Date of delivery: December 23, 2023 Pre-delivery diagnoses: 40 w 6 d induction of labor Post-delivery diagnoses: 40 w 6 d induction of labor vaginal delivery Procedure: induction of labor vaginal delivery Op report anesthesia: Epidural Delivering Physician: Gaudencio Benítez MD Estimated blood loss (mL): 300 Findings: , vigorous female Cord gases and blood obtained Normal placenta and cord No episiotomy / lacerations EBL: 300 cc No complications Pre-Delivery Course: patient admitted at 40 w 6 d pitocin induction of labor started patient progressed with normal labor course delivered vaginally without any complications Delivery: vaginal Post-Delivery Status: good History History History 7 Term 3 1 Miscarriages/Ectopic 2 Living Children 4 A&P Assessment and plan (1) Status post vaginal delivery: Coding Level of Care Code Acute Code for Chg Fwd Diagnoses Status post vaginal delivery Time Spent (min) 60
--- NOTE | 2023-12-23 04:02 | ANES.PREANE2 ---
Pre-Anesthetic Assessment Height/Weight: Height 1.6 m Weight 60.781 kg Temp Pulse BP Pulse Ox O2 Del Method 97.0 F L 96 110/65 94 Room Air 12/22/23 22:39 12/23/23 04:00 12/23/23 03:54 12/23/23 04:00 12/22/23 13:56 Preop Diagnosis: IUP labor epidural Familial anesthetic complications: None Was Beta Harjinder taken within 24 hours: N/A Was Clonidine taken within 24 hours: N/A Social No alcohol and No tobacco Exam alert, oriented x 3 and clear to auscultation bilaterally Airway Mallampati: Class II Dentition: full History/ROS No significant history except as noted Pulmonary None reported CV/HEM None reported None reported Hepatic None reported GI Gastroesophageal Reflux Disease Metabolic None reported Musc/skel None reported Neuropsych None reported Anesthetic Plan ASA status: 2 Anesthesia: Anesthesia Evaluation and Regional (specify below) (epidural ) Risk of > 500 ml blood loss (7ml/kg in children): Yes, adequate IV access and fluids planned Medications/Allergies Home Medications Medication Instructions Recorded Confirmed Last Taken Type No Known Home Medications 12/21/23 Unknown History Allergies Allergy/AdvReac Type Severity Reaction Status Date / Time acetaminophen [From Tylenol] Allergy Unknown Verified 12/19/23 01:00 amoxicillin [From Amoxil] Allergy ALGY-Anaphy Verified 12/19/23 01:00 laxis latex Allergy ALGY-Rash Verified 12/19/23 01:00 Current Medications Generic Name Dose Route Start Last Admin Trade Name Freq PRN Reason Stop Dose Admin Dextrose/Lactated Ringer's 1,000 mls @ 125 mls/hr 12/22/23 14:00 12/23/23 02:02 Dextrose 5%-Lactated Ringers IV 0 mls/hr .Q8H TEDDY Infusion Oxytocin 30 unit in 500 mls @ 1 mls/hr 12/22/23 14:45 12/23/23 03:30 Pitocin IV 600 milliunit/min .Q24H TEDDY 600 mls/hr Titration Protocol 1 MILLIUNIT/MIN Lactated Ringer's 1,000 mls @ 999 mls/hr 12/23/23 01:54 12/23/23 03:03 Lactated Ringers IV 999 mls/hr .Q1H1M PRN Administration See label comments Ropivacaine 100 mg in 50 mls @ 10 mls/hr 12/23/23 02:00 12/23/23 03:24 Naropin Syringe EPIDURAL 0 mls/hr .Q5H TEDDY Infusion PFSH Anesthesia Family History Denies family history of Colon cancer Ovarian cancer Diabetes Heart disease Breast cancer Hypertension Uterine cancer Thyroid disease Stroke Social History Smoking and tobacco/nicotine status: current every day tobacco/nicotine user cigarettes Female Reproductive History Date of last menstrual period: 03/11/23 : 7 Data Anesthesia 12/22/23 14:14 Short CBC 12/22/23 Range/Units 14:14 WBC 10.33 (3.29-11.43) 10^3/uL Hgb 12.60 (11.27-16.99) g/dL Hct 38.0 (36-47) % MCV 91.1 (85-98) fl Plt Count 204 (157-399) 10^3/cmm Neut % (Auto) 81.3 % Neut # (Auto) 8.41 H (1.8-7.7) 10^3/uL Blood Bank 12/22/23 14:14 Blood Type O Positive Rho(D) Type Rh positive Antibody Screen Negative Cardiac Studies: No Data to Display Anesthesia Procedures Epidural Time Out Performed: Yes Consents Signed: Procedure Consent Consent: requested by attending/covering physician, from patient, risks and benefits reviewed and patient agrees to proceed Lumbar Level: L4-L5 Epidural position: sitting Epidural procedure: sterile prep of area, 1% lidocaine to numb the area, 18 g needle, negative for paresthesia passed, neg for paresthesia, test dose given, 1.5% xylocaine 1:200k epi, 0.2% Ropivacaine bolus ml (5), placed PCEA, no systemic response, sterile dressing applied, L.U.D. no apparent complications and 0.2% Ropiavacaine @ mls/hr (10) Additional Comments: ROSE 5cm, catheter easily threaded to 5cm in the space. VS monitored throughout and remained stable. Pt educated on FANCY STITCHER.
[2023-12-23] MEDS: oxytocin 30 UNIT/500 ML BAG 600 UNIT IV (04:10)
[2023-12-23] MEDS: benzocaine-menthol 78 gm Canister 1 SPRAY TOPICAL (06:24)
[2023-12-23] MEDS: docusate sodium 100 mg Capsule PO ×2 (08:28→19:04)
[2023-12-23] MEDS: ibuprofen 600 mg Tablet PO ×2 (08:28→20:20)
[2023-12-23 15:57] LABS: Hematocrit 34.6 % (36-47); Mean Corpuscular HGB Conc 32.9 g/dL (30-55); Mean Corpuscular Hemoglobin 30.6 pg (27-33); Mean Platelet Volume 13.1 fL (7.4-10.4); Platelet Count 187 10^3/cmm (157-399); Red Blood Count 3.72 10^6/uL (3.85-5.65); Red Cell Distribution Width 13.8 % (12.1-15.1); White Blood Count 12.51 10^3/uL (3.29-11.43)
[2023-12-24 03:58] VITALS: BP 104/68; PULSE 72; RESP 16; TEMP 36.7; O2SAT 97
[2023-12-24 06:00] VITALS: BMI 23.7
--- NOTE | 2023-12-24 08:00 | ANE.PACU2 ---
Inpatient post-anesthesia follow up: Airway intact: Yes Vital signs: Temperature 98.1 F Pulse Rate 72 Respiratory Rate 16 Blood Pressure 104/68 Pulse Oximetry 97 Oxygen Delivery Me thod Room Air Oxygen Flow Rate Fraction of Inspir ed Oxygen Hydration adequate: Yes Nausea and vomiting: No Pain level: 1 Mental status: Baseline Epidural Start/End: Epidural Start Date: 12/23/23 Epidural Start Time: 03:16 Epidural End Date: 12/23/23 Epidural End Time: 03:35
[2023-12-24] MEDS: docusate sodium 100 mg Capsule PO (08:43)
[2023-12-24] MEDS: ibuprofen 600 mg Tablet PO (08:44)
--- NOTE | 2023-12-24 13:10 | PM.OBGYDC ---
Discharge Providers [employer] Date of Admission: 12/22/23 13:19 Date of Discharge: 12/24/23 Attending Provider at Admission: Gaudencio Benítez MD Attending Provider at Discharge: Gaudencio Benítez MD Consults: none Primary [employer]: Gaudencio Benítez MD Diagnoses at Discharge Discharge Diagnosis (1) Status post vaginal delivery: Details from hospital stay: 33 y.o. A2 at 40 w 6 d admitted for induction of labor patient was started on pitocin per protocol progressed with normal labor course fetus was reassuring throughout patient delivered vaginally without any lacerations patient did well in the period and was discharged to home on the first day Status: Acute Reason for Visit Reason for Visit: IOL Brief History: 33 y.o. A2 at 40 w 6 d admitted for induction of labor Hospital Course Hospital Course 33 y.o. A2 at 40 w 6 d admitted for induction of labor patient was started on pitocin per protocol progressed with normal labor course fetus was reassuring throughout patient delivered vaginally without any lacerations patient did well in the period and was discharged to home on the first day Information Peripartum Data: Delivery Method: Vaginal Laceration description: None Episiotomy description: None complications: none Physical Exam Narrative: afebrile, VS normal comfortable, awake, alert Abd: soft, nontender. fundus firm Ext: no edema; nontender History History History 7 Term 4 1 Miscarriages/Ectopic 2 Living Children 5 Discharge Data Studies Completed and Pending Laboratory Results WBC 12.51 10^3/uL (3.29-11.43) H 12/23/23 15:45 RBC 3.72 10^6/uL (3.85-5.65) L 12/23/23 15:45 Hgb 11.40 g/dL (11.27-16.99) 12/23/23 15:45 Hct 34.6 % (36-47) L 12/23/23 15:45 MCV 93.0 fl (85-98) 12/23/23 15:45 MCH 30.6 pg (27-33) 12/23/23 15:45 MCHC 32.9 g/dL (30-55) 12/23/23 15:45 RDW 13.8 % (12.1-15.1) 12/23/23 15:45 Plt Count 187 10^3/cmm (157-399) 12/23/23 15:45 MPV 13.1 fL (7.4-10.4) H 12/23/23 15:45 Neut % (Auto) 81.3 % 12/22/23 14:14 Lymph % (Auto) 12.9 % 12/22/23 14:14 [place] % (Auto) 4.1 % 12/22/23 14:14 Eos % (Auto) 0.8 % 12/22/23 14:14 Baso % (Auto) 0.4 % 12/22/23 14:14 Neut # (Auto) 8.41 10^3/uL (1.8-7.7) H 12/22/23 14:14 Lymph # (Auto) 1.3 10^3/uL (0.8-4.8) 12/22/23 14:14 [place] # (Auto) 0.4 10^3/uL (0.2-0.9) 12/22/23 14:14 Eos # (Auto) 0.1 10^3/uL (0.0-0.8) 12/22/23 14:14 Baso # (Auto) 0.0 10^3/uL (0.0-0.1) 12/22/23 14:14 Nucleated RBC % (auto) 0 % 12/22/23 14:14 Nucleated RBCs # 0.0 /100WBC 12/22/23 14:14 POC Glucose 116 mg/dL (70-110) H 12/22/23 16:24 Blood Type O Positive 12/22/23 14:14 Rho(D) Type Rh positive 12/22/23 14:14 Antibody Screen Negative 12/22/23 14:14 Procedures Performed induction of labor vaginal delivery Vitals Last Vital Signs Temp 97.7 F 12/24/23 13:28 Pulse 69 12/24/23 13:28 Resp 18 12/24/23 13:28 BP 110/74 12/24/23 13:28 Pulse Ox 100 12/24/23 13:28 O2 Del Method Room Air 12/24/23 03:58 Results Labs OB ([facility]): Obstetrics US 10/29/23 Blood Type O Positive 12/22/23 Antibody Screen Negative 12/22/23 Hct 34.6 % (36-47) L 12/23/23 Hgb 11.40 g/dL (11.27-16.99) 12/23/23 Rho(D) Type Rh positive 12/22/23 Plt Count 187 10^3/cmm (157-399) 12/23/23 Hep Bs Antigen Non-reactive (Nonreactive) 05/14/23 Hepatitis C Antibody Non-reactive (Nonreactive) 05/14/23 Rubella IgG Antibody 470.7 IU/mL (0.0-10.0) H 05/14/23 RPR Nonreactive (Nonreactive) 05/14/23 HIV 1&2 Ab & HIV 1 Ag Non-reactive (Non-Reactiv) 05/14/23 TSH 1.14 uIU/mL (0.27-4.20) 05/14/23 Free T4 1.21 ng/dL (0.82-1.77) 05/14/23 Cystic Fibrosis Screen Negative 05/14/23 Glucose 1 Hr 50 gm 84 mg/dL (85-140) L 09/24/23 Ser , Semi-Qnt 2009.00 mIU/mL 04/15/23 HCG, Qual Positive (Negative) H 04/09/23 Urine Opiates Screen Negative ng/mL (Negative) 05/14/23 Ur Barbiturates Screen Negative ng/mL (Negative) 05/14/23 Ur Phencyclidine Scrn Negative ng/mL (Negative) 05/14/23 Ur Amphetamines Screen Negative ng/mL (Negative) 05/14/23 U Benzodiazepines Scrn Negative ng/mL (Negative) 05/14/23 Urine Cocaine Screen Negative ng/mL (Negative) 05/14/23 U Marijuana (THC) Screen Negative ng/mL (Negative) 05/14/23 Micro Urine Specimen 05/14/23 Discharge Plan Discharge Patient Disposition: Home Condition: Stable Prescriptions: No Action lorazepam 0.5 mg tablet 0.5 mg PO BID PRN (Reason: anxiety) Qty: 30 0RF Discharge Orders: Discharge Order (Routine); Ordered 12/24/23 Ordered By: Gaudencio Benítez Referrals: Gaudencio Benítez MD [Physician] - 02/04/24 1:30 pm Discharge Diet: Usual diet Discharge Activity: Resume usual activity Patient Instructions: Depression (DC), Caring for Your Formula Fed Baby (DC), Bleeding (DC), Preeclampsia and Eclampsia After Delivery (GEN), OB Discharge Report, OB Food/Drug Interaction Guide, OB Care at Home, Opioid Safety, OB Vaginal Deliveries - [facility], Abnormal Bleeding Discharge Attestations [employer] Time Spent in Discharge Care*: less than 30 min Coding Level of Care Code Acute Code for Chg Fwd Diagnoses Status post vaginal delivery Time Spent (min) 20
[2023-12-24 13:28] VITALS: BP 110/74; PULSE 69; RESP 18; TEMP 36.5; O2SAT 100
== END 2023-12-24 12:25 | disposition home or self-care (01) | DRG 807 ==
LOC: OBGYN 13:19
PROVIDERS: Admitting Provider Obstetrics & Gynecology; Visit Provider Obstetrics & Gynecology
DX: O48.0 Post-term pregnancy (principal); Z37.0 Single live birth; O99.334 Smoking (tobacco) complicating childbirth; F17.210 Nicotine dependence, cigarettes, uncomplicated; O75.89 Other specified complications of labor and delivery; K21.9 Gastro-esophageal reflux disease without esophagitis; Z3A.40 40 weeks gestation of pregnancy
CPT/HCPCS: 36415; 36416; 59025; 59409; 82962; 85025; 85027; 86850; 86900; J2590; J2795; J7120; J7121

== ENCOUNTER → 2024-12-08 18:19 | Outpatient (BNVA) | payer OTHER, BC, MEDICAID, SELFPAY | PROVIDERS: Visit Provider Registered Nurse Neonatal Intensive Care | DX: R39.9 Unspecified symptoms and signs involving the genitourinary system (principal) | CPT/HCPCS: 81000 ==

== ENCOUNTER → 2024-12-10 09:27 | Outpatient (BNVA) | payer OTHER, BC, MEDICAID, SELFPAY | DX: Z76.89 Persons encountering health services in other specified circumstances (principal) | CPT/HCPCS: 80053; 84443; 85025 ==

== ENCOUNTER 2024-12-14 11:11 | Outpatient (CLI) | payer OTHER, BC, MEDICAID, SELFPAY ==
--- NOTE | 2024-12-14 11:17 | XRR_ITS ---
PROCEDURE INFORMATION: Exam: XR Lumbosacral Spine Exam date and time: 12/14/2024 11:23 AM Age: 34 years old Clinical indication: Low back pain; Prior surgery; Surgery date: 6+ months; Surgery type: Gb; Lower back pain xfew months radiates from right hip posteriorly to left hip and up lower back TECHNIQUE: Imaging protocol: Radiologic exam of the lumbosacral spine. Views: 2 or 3 views. COMPARISON: CT kidney stone [id number] 03/23/2023 11:00 PM FINDINGS: Bones/joints: Four lumbar type vertebral bodies with transitional vertebra, variation of normal. Lumbar vertebral body heights appear maintained, as do disc spaces and alignment. No fracture or compression deformity. No spondylolisthesis. Sacroiliac joints and visualized sacrum appears unremarkable. Soft tissues: Unremarkable. Intraperitoneal space: Surgical clips right upper quadrant. Small calcific density overlying the lower pole left kidney level suggesting small left renal calculus. XR/XR lumbar spine 2-3V* [id number] IMPRESSION: 1. No acute findings lumbosacral spine. 2. Suggestion of small left renal calculus lower pole, appearing chronic with prior CT of 2022.
== END 2024-12-14 11:12 | disposition home or self-care (01) ==
LOC: RAD 11:14
DX: M54.50 Low back pain, unspecified (principal); N28.89 Other specified disorders of kidney and ureter
CPT/HCPCS: 72100

== ENCOUNTER 2025-01-03 17:57 | Emergency (ER) | payer OTHER, BC, MEDICAID, SELFPAY ==
--- OUTSIDE RECORDS SUMMARY | 2011-11-21 04:44 | XMS_ITS | Continuity of Care Document ---
Author Organization [facility] Address [address] [place] [address] Phone Care Team Providers Care Interpreter Translator Name Role Phone Monroe Melgoza MD Unavailable Unavailable Allergies, Adverse Reactions, Alerts Substance Reaction Status Criticality amoxicillin SOB/mouth numbness Active No Inform ation latex Rash Active No Information Sulfa (Sulfonamide Antibiotics) mouth numbness/swellin g Active No Information Procedures Procedure Date URINE TEST SMEAR, WET MOUNT, SALINE/INK CHYLMD TRACH, DNA, AMP PROBE N.GONORRHOEAE, DNA, AMP PROB BX/CURETT OF CERVIX W/SCOPE OFFICE/OUTPATIENT VISIT, NEW Surgical trays A Advance Directives Directive Yes / No Effective Date File Name No Information Encounters Encounter Description Practice Location Reason(s) For Visit Diagnoses Date Provider Providers Copied on Encounter [facility], [address], [place], [id number] , [place] tel: [phone] [facility] No Information 2 Abad Childress. [address] [place], [place], [id number]. tel: [phone] OFFICE/OUTPA TIENT VISIT, NEW [facility], [address], [place], [id number] , [place] tel: [phone] [facility] colposcopy (chief complaint)p elvic pain (chief complaint) examination or test, unconfirmedScreen ing examination for venereal diseaseLGSILPelvi c Pain Jul- 2 No Information Family History Family Member Type Diagnosis Age At Onset Mother Problem (finding) elevated blood sugars Mother Problem (finding) hypertension Half sister Problem (finding) Systemic lupus erythema tosus 30 Grandparent Problem (finding) hypertension Father Problem (finding) hypertension Mother Problem (finding) migraine Payers Payer name Insurance type Covered libertarian [place] Authoriza tion(s) Medicaid [facility] [id number] Social History Type Description Quantity Date Captured Comments Sex Female Smoking Status No Information Chief Complaint And Reason For Visit No Information Reason For Referral Reason For Referral No Information History Of Present Illness Encounter Date Complaint History Of Prese nt Illness No Information Functional Status Date Functional Assessmen t No Information Instructions Date Instruction Additional Infor mation No Information Assessments Type Assessment Date No Information Patient Care Teams Name Effective Dates (start - stop) Status Members No Information
[2025-01-03 18:10] VITALS: BP 110/75; PULSE 73; RESP 18; TEMP 36.7; O2SAT 100
--- NOTE | 2025-01-03 20:40 | W.ED.HA ---
HPI - Headache General: Chief Complaint: Headache Stated Complaint: vision flickering, [place] Time Seen by Provider: 01/03/25 20:31 History of Present Illness: 34-year-old female with a history of anxiety who presents to the emergency room with a headache. Says at home she has tried wearing sunglasses, caffeine, [id number] medications and nothing is working. Related Data Home Medications ?Medication ?Instructions ?Recorded ?Confirmed lorazepam 0.5 mg tablet 0.5 mg PO DAILY PRN 12/08/24 12/14/24 Previous Rx's ?Medication ?Instructions ?Recorded paroxetine HCl 10 mg tablet 10 mg PO DAILY #30 tabs 12/10/24 albuterol sulfate 90 mcg/actuation 1 inh inhalation QID #6.7 grams 12/14/24 aerosol inhaler (Ventolin HFA) azithromycin 250 mg tablet See Rx Instructions PO .COMPLEX #6 12/14/24 tabs cyclobenzaprine 5 mg tablet 5 mg PO .hs PRN muscle spasm #10 12/14/24 tabs Allergies Allergy/AdvReac Type Severity Reaction Status Date / Time acetaminophen (From Tylenol) Allergy Unknown Verified 12/14/24 10:27 amoxicillin (From Amoxil) Allergy ALGY-Anaphy Verified 12/14/24 10:27 laxis latex Allergy ALGY-Rash Verified 12/14/24 10:27 [facility] ED [facility]: Medical History (Updated 12/21/24 @ 09:01 by Sadie Franco NP) Seizure January 2022- stress induced Encounter for induction of labor Surgical History History of cholecystectomy Status post vaginal delivery Family History Father Stroke Grandmother Alzheimer's dementia Grandmother Diabetes Denies family history of Colon cancer Ovarian cancer Heart disease Breast cancer Hypertension Uterine cancer Thyroid disease Social History Smoking and tobacco/nicotine status: current every day tobacco/nicotine user cigarettes Alcohol intake: never Substance/Drug Use: never Course Vital Signs: Vital signs: Vital Signs Temperature 98.1 F 01/03/25 18:10 Pulse Rate 73 01/03/25 18:10 Respiratory Rate 18 01/03/25 18:10 Blood Pressure 110/75 01/03/25 18:10 Pulse Oximetry 100 01/03/25 18:10 Oxygen Delivery Me thod Room Air 01/03/25 18:10 Discharge Plan Discharge Patient Disposition: Left Without Being Seen Condition: Stable Prescriptions: No Action paroxetine HCl 10 mg tablet 10 mg PO DAILY Qty: 30 0RF azithromycin 250 mg tablet See Rx Instructions PO .COMPLEX Qty: 6 0RF Rx Instructions: For 250 mg dose pack: take 500 mg today (day 1), then 250 mg for 4 days (days 2-5) PO albuterol sulfate [Ventolin HFA] 90 mcg/actuation HFA aerosol inhaler 1 inh inhalation QID Qty: 6.7 0RF cyclobenzaprine 5 mg tablet 5 mg PO .hs PRN (Reason: muscle spasm) Qty: 10 0RF lorazepam 0.5 mg tablet 0.5 mg PO DAILY PRN Referrals: Sadie Franco CONSTRUCTION PROJECT ENGINEER [Primary Care Provider, Family Practice] Print Language: Martiniquais Coding Level of Care 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
== END 2025-01-03 20:41 | disposition left against medical advice (07) ==
PROVIDERS: Emergency Provider Emergency Medicine
DX: Z53.21 Procedure and treatment not carried out due to patient leaving prior to being seen by health care provider (principal); R51.9 Headache, unspecified

== ENCOUNTER 2025-02-04 09:39 | Emergency (ER) | payer OTHER, BC, MEDICAID, SELFPAY ==
[2025-02-04 09:46] VITALS: BP 106/69; PULSE 77; RESP 18; TEMP 36.8; O2SAT 98; BMI 21.9
--- NOTE | 2025-02-04 09:46 | ECG_ITS ---
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 Measurements Intervals [place] Rate: 77 P: 31 OK: 124 QRS: 55 QRSD: 95 T: 62 QT: 360 QTc: 410 Interpretive Statements SINUS RHYTHM INCOMPLETE RIGHT BUNDLE BRANCH BLOCK [90+ ms QRS DURATION, TERMINAL R IN V1/V2, 40+ ms S IN I/aVL/V4/V5/V6] No previous ECG available for comparison Electronically Signed On 02-05-2025 12:08:33 CDT by Haja Zavaleta M.D. [email or web address]
--- OUTSIDE RECORDS SUMMARY | 2025-02-04 10:02 | XMS_ITS | Patient Health Record ---
Author Organization [email or web address] Address [address] [place], [place] [id number] Care Team Providers Care Drug Safety Coordinator Name Role Phone Carlton Dukes Primary Care Provider [phone] Allergies Allergen (clinical drug ingredient) Drug/Non Drug Allergy documented on EMR Reaction Allergy Type Onset Date Status cefdinir Cefdinir Unknown Drug Allergy Active acetaminophen Tylenol Unknown Drug Allergy Act lisset Sulfa Unknown Drug Allergy Active Latex Unknown Drug Allergy Active amoxicillin Amoxicillin Unknown Drug Allergy Act lisset Reason For Referral No Information Medications Medication SIG (Take, Route, Frequency, Duration) Notes Start Date End Date Status Azithromycin 250 MG 2 tablets day 1 then 1 tablet daily next 4 days Orally daily; Duration: 5 days 12/19/2022 Active Ibuprofen 600 MG 1 tablet with food or milk as needed Orally four times a day; Duration: 10 days 08/09/2022 Active Clindamycin HCl 300 MG 1 capsule Orally every 8 hrs; Duration: 7 day(s) 08/09/2022 Active Ibuprofen 600 mg TAKE ONE TABLET BY MOUTH THREE TIMES DAILY WITH FOOD OR MILK NEEDED THANK YOU; Duration: 7 pt needs appointment for more refills Active Ketorolac Tromethamine 10 MG 1 tablet with food or milk as needed Orally every 6 hrs; Duration: 14 days 10/18/2022 Active Cetirizine HCl 10 MG 1 tablet Orally Once a day; Duration: 30 day(s) 12/14/2021 Active levoFLOXacin 500 MG 1 tablet Orally Once a day; Duration: 10 day(s) 12/14/2021 Active Clindamycin HCl 300 MG 1 capsule Orally every 6 hrs; Duration: 7 days Active Azithromycin 250 MG 2 tablet on the first day, then 1 tablet daily for 4 days Orally Once a day; Duration: 5 day(s) 10/04/2021 Active Cetirizine HCl 10 MG 1 tablet Orally Once a day; Duration: 30 days 01/18/2020 Active Fluticasone Propionate 50 MCG/ACT 1 spray in each nostril Nasally Once a day; Duration: 30 days 01/18/2020 Active LORazepam 0.5 MG 1 tablet as needed Orally Twice a day; Duration: 30 days 02/28/2021 Active CeleXA 20 MG 1 tablet Orally Once a day; Duration: 30 days Active Social History Tobacco use other than smoking: Question Answer Notes Are you an other tobacco user? No Section Notes: 1/2 ppd smoker 1/2 ppd smoker 1/2 ppd smoker 1/2 ppd smoker 1/2 ppd smoker 1/2 ppd smoker 1/2 ppd smoker 1/2 ppd smoker 2 or 3 a day 2 or 3 a day 2 or 3 a day 2 or 3 a day 2 or 3 a day 2 or 3 a day 2 or 3 a day 2 or 3 a day 2 or 3 a day 2 or 3 cigarettes a day 2 or 3 cigarettes a day 2 or 3 cigarettes a day 2 or 3 cigarettes a day 2 or 3 cigarettes a day 2 or 3 cigarettes a day 2 or 3 cigarettes a day 2 or 3 cigarettes a day 2 or 3 cigarettes a day 2 or 3 cigarettes a day Problems Problem Type SNOMED Code ICD Code Onset Dates Problem Status W/U Status Risk Notes Problem Secondary amenorrhea (822137121) Secondary amenorrhea (N91.1) Active confirmed Problem Anxiety (31675757) Anxiety (F41.9) Active confirmed Problem Hypoglycemia (931950437) Low blood sugar (E16.2) Active confirmed Problem Maxillary sinusitis (01159067) Maxillary sinusitis (J32.0) Active confirmed Problem Irregular menstrual bleeding (58577363) Irregular menstrual bleeding (N92.6) Active confirmed Problem Amenorrhea (10970948) Amenorrhea (N91.2) Active confirmed Problem Gallstones (867435675) Gallstones (K80.20) Active confirmed Problem Moderate recurrent major depression (07816478) mModerate episode of recurrent major depressive disorder (F33.1) Active confirmed Problem 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 GONORRHOEAE RNA, TMA #[id number] 04/23/2019 HCG, QL, URINE 01/05/2019 HCG, QL, URINE 02/23/2019 Drug Screen ([facility]NA) 12 Test 04/11/2020 SARS Antigen QuickVue Test 12/14/2021 Insurance Providers Payer Name Payer Address Payer Phone Subscriber Number Group Number Insured Name Patient Relationship to Insured Coverage Start Date Coverage End Date [employer] [address] [address] [place], [place] [id number] Helen Jack Self - patient is the insured Medical (General) History Surgical History Surgery Date(Month/Year)
--- NOTE | 2025-02-04 10:24 | ED_ITS ---
HPI - Dental/Oral 2 General: Chief complaint: Dental/Oral Stated complaint: CP Back Pain R side of mouth pain Time Seen by Provider: 02/04/25 10:20 Source: patient Mode of arrival: ambulatory Limitations: no limitations History of Present Illness: Patient is a 35-year-old female who presents to ED today with complaint of right lower dental pain over the past several days. She states she has had intermittent pain to the tooth before but was always controllable with [id number] Motrin. She states her pain now feels significantly worse and she feels like maybe she is starting to develop some swelling to her face. She is not having any trouble eating, drinking, swallowing, breathing. No fevers. She is trying to find a dentist to schedule an appointment. MD Complaint: tooth pain Teeth map: 1. Onset (ago): day(s) Duration: constant Severity: severe Relieving factors: nothing Exacerbating factors: nothing Context: history of dental caries and poor dental care Associated symptoms: Reports no associated symptoms; Denies ear or mastoid pain, fever(s) or odynophagia Treatment prior to arrival: oral analgesic Related Data Home Medications ?Medication ?Instructions ?Recorded ?Confirmed lorazepam 0.5 mg tablet 0.5 mg PO DAILY PRN anxiety 12/08/24 01/10/25 Previous Rx's ?Medication ?Instructions ?Recorded paroxetine HCl 10 mg tablet 10 mg PO DAILY #30 tabs lorazepam 0.5 mg tablet 0.5 mg PO DAILY PRN anxiety #30 01/10/25 tabs azithromycin 250 mg tablet See Rx Instructions PO .COM PLEX #6 02/04/25 tabs clindamycin HCl 300 mg capsule 300 mg PO Q6H 7 days #2 8 caps 02/04/25 ketorolac 10 mg tablet 10 mg PO Q8H PRN pain 3 days #9 02/04/25 tabs Allergies Allergy/AdvReac Type Severity Reaction Status Date / Time acetaminophen (From Tylenol) Allergy Unknown Verified 01/10/25 11:21 amoxicillin (From Amoxil) Allergy ALGY-Anaphy Verified 01/10/25 11:21 laxis latex Allergy ALGY-Rash Verified 01/10/25 11:21 Review of Systems 2 Const: Denies: fever(s), chills, body aches, fatigue or malaise ENMT: Reports: dental pain; Denies: throat pain, uvular edema, enlarged tonsils, odynophagia, hoarseness, mouth pain, swelling of lips/tongue, oral sores, bleeding gums, ear or mastoid pain, nasal discharge, nasal congestion or sinus pain Card: Denies: chest pain Resp: Denies: dyspnea GI: Denies: nausea or vomiting Musc: Denies: neck pain Neuro: Denies: headache(s) PFSH ED 2 PFSH: Medical History Seizure January 2022- stress induced Encounter for induction of labor Surgical History History of cholecystectomy Status post vaginal delivery Family History Father Stroke Grandmother Alzheimer's dementia Grandmother Diabetes Denies family history of Colon cancer Ovarian cancer Heart disease Breast cancer Hypertension Uterine cancer Thyroid disease Social History Smoking and tobacco/nicotine status: current every day tobacco/nicotine user cigarettes Alcohol intake: never Substance/Drug Use: never Physical Exam 2 Const: COMMON NORMALS: no acute distress, average body habitus, patient oriented x3, no limitations, healthy appearing, alert and well nourished HENMT: FACE & SINUS: normal facial exam; no edema MOUTH: Normal oral and palatal mucosa present, lip normal, tongue normal and Normal salivary glands and ducts present TEETH & GINGIVA: Yes caries TEETH & GINGIVA IMAGES: 1. fractured/broken R lower 3rd molar; no obvious abscess THROAT: other (floor of mouth is soft/non-elevated); no uvular edema Neck/C-Spine: GENERAL: Yes normal visual inspection, No anterior neck swelling and No submandibular swelling Neuro: COMMON NORMALS: patient oriented x3 SENSORIUM/ORIENTATION: Yes alert Course 2 Vital Signs: Vital signs: Vital Signs Temperature 98.2 F 02/04/25 09:46 Pulse Rate 78 02/04/25 10:53 Respiratory Rate 18 02/04/25 09:46 Blood Pressure 106/69 02/04/25 09:46 Pulse Oximetry 98 02/04/25 10:53 Oxygen Delivery Me thod Room Air 02/04/25 09:46 MDM - Dental/Oral Medical Decision Making Patient will be placed on prophylactic antibiotics. She does not want opiate pain medication. She states Toradol has worked well in the past. Will give her 3 days worth of this. Discussed not taking it with other ogsg-ahp-jpniehy anti- inflammatories and to take along with food. Discussed risks including gastritis/GI bleed. Continue plan to follow-up with a dentist as soon as possible. At this time there is no concern for drainable dental infection or deep space infection or Demond's. Return ED precautions discussed. Differential Diagnosis Likely gingival abscess, toothache and dental abscess Medical Records I reviewed the patient's medical records. No radiology studies performed this visit Discharge Plan Discharge Patient Disposition: Home Clinical Impression: Pain, dental Condition: Stable Prescriptions: New clindamycin HCl 300 mg capsule 300 mg PO Q6H 7 Days Qty: 28 0RF ketorolac 10 mg tablet 10 mg PO Q8H PRN (Reason: pain) 3 Days Qty: 9 0RF No Action lorazepam 0.5 mg tablet 0.5 mg PO DAILY PRN (Reason: anxiety) Qty: 30 2RF paroxetine HCl 10 mg tablet 10 mg PO DAILY Qty: 30 0RF lorazepam 0.5 mg tablet 0.5 mg PO DAILY PRN (Reason: anxiety) azithromycin 250 mg tablet See Rx Instructions PO .COMPLEX Qty: 6 0RF Rx Instructions: For 250 mg dose pack: take 500 mg today (day 1), then 250 mg for 4 days (days 2-5) PO Discharge Orders: Discharge ED (Routine); Ordered 02/04/25 Ordered By: Adriana Gamez Referrals: Sadie Franco MD [Primary Care Provider, Pediatrics] Patient Instructions: Dental Abscess (ED), Toothache (ED), Patient Portal & Avinash Instructions Print Language: South African Coding Level of Care Code 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
[2025-02-04 10:53] VITALS: PULSE 78; O2SAT 98
== END 2025-02-04 11:06 | disposition home or self-care (01) ==
PROVIDERS: Emergency Provider Physician Assistant; PCP Pediatrics
DX: K08.89 Other specified disorders of teeth and supporting structures (principal); F17.210 Nicotine dependence, cigarettes, uncomplicated
CPT/HCPCS: 93005; 99283